=== PATIENT | female | born 1970 | race Caucasian/White ===

== ENCOUNTER 2016-06-17 19:41 | Observation (INO) | payer BC ==
[~2016-06-17] VITALS: Ht 167.6 cm; Wt 141.0 kg
[~2016-06-17 19:41] MED LIST: AMBI10TA PO; CAMP333T PO; MAGO400T PO; TRAZ50TA4 PO; ZOLO100T PO
[2016-06-17] MEDS ORDERED: MORPHINE 4 MG/ML 1ML SYRINGE As Ordered ONE ×2 (19:57→20:27)
[2016-06-17] MEDS ORDERED: ONDANSETRON 4MG/2ML VIAL (J2405) As Ordered ONE (19:58)
--- NOTE | 2016-06-17 20:29 | REP ---
Clinical: Trauma. Technique: AP and lateral views. Findings: Comminuted displaced trimalleolar fractures of the ankle are appreciated with overlying soft tissue swelling. Dislocation at the tibiotalar joint best identified on lateral radiograph. Impression: Comminuted dislocated trimalleolar fractures of the ankle. Signed by Inderjit Parisi MD 06/17/2016 08:20 P
[2016-06-17] MEDS ORDERED: KETAMINE HCL 200 MG/20 ML VIAL As Ordered ONE (20:54)
[2016-06-17] MEDS ORDERED: MIDAZOLAM INJ 2 MG/2 ML VIAL (J2250) As Ordered ONE (20:55)
[2016-06-17] MEDS ORDERED: PROPOFOL 200 MG/20 ML VIAL As Ordered ONE (21:02)
[2016-06-17] MEDS ORDERED: VITMTA PO (21:02)
[2016-06-17] MEDS ORDERED: MORPHINE 2 MG/ML 1ML SYRINGE As Ordered ONE (22:45)
--- NOTE | 2016-06-17 23:10 | REPUSA ---
CT of the left ankle without contrast Clinical statement: Pain. Technique: Multiple axial CT images were obtained with 5 mm cuts through the left ankle without admin istration of contrast. Coronal and sagittal reconstructions were also obtained. No comparison is available. Findings: There is a longitudinal fracture through the medial and posterior malleoli of the distal ti fabi, extending to the articular surface. There is also an oblique fracture through the lateral distal aspect of the tibia, extending to the articular surface. There is an oblique, nondisplaced fracture of the distal fibula, without displacement. There is a tiny 3 mm fracture fragment demonstrated in th e central portion of the ankle mortise posteriorly. The ankle mortise is otherwise intact. Extensive surrounding soft tissue swelling is noted. Impression: Trimalleolar fracture of the left ankle, with oblique nondisplaced fractures of the media l malleolus, lateral malleolus, and posterior tibial, extending to the articular surface as described .
--- NOTE | 2016-06-17 23:17 | EDDOCDS ---
Nurse's Notes [facility] Name: Medina Foster Age: 46 yrs Sex: Female : 1970 Arrival Date: 06/17/2016 Time: 19:41 Bed 4 Private MD: Diagnosis: Displaced trimalleolar fracture of left lower leg Presentation: 06/17 19:49 Presenting complaint: EMS states: Pt was walking down the stairs outside her house and js15 slipped on ice and fell down 3 stairs and injured left ankle; EMS states that there was obvious deformity with bruising and swelling on arrival. The patients lower extremity has obvious swelling present on examination. The charge nurse has been notified. The patient has been moved to a treatment area. has a possible ankle defomity on examination. The charge nurse has been notified. The patient has been moved to a treatment area. Adult Sepsis Screening: The patient does not have new or worsening altered mentation. Patient's respiratory rate is less than 22. Systolic blood pressure is greater than 100. Patient has a qSOFA score of 0- Negative Sepsis Screen. Suicide/Homicide risk assessment- the patient denies having any suicidal and/or homicidal ideations and does not present with any other emotional, behavioral or mental health complaints. 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 Transition of care: patient was not received from another setting of care. 19:49 Acuity: AGAPITO Level 3 15 19:49 Method Of Arrival: Ambulance js15 Triage Assessment: 19:54 General: Appears uncomfortable, Behavior is anxious, appropriate for age, cooperative, js15 crying. Pain: Location: left lateral ankle and left medial ankle Pain currently is 8 out of 10 on a pain scale. HIV screening NA for this visit Offered previously. The patient is triaged at the bedside. See Assessment in Nurses Notes section of ED record. Neurological: Level of Consciousness is awake, alert, obeys commands, Oriented to person, place, time. Cardiovascular: Chest pain is denied. Cardiovascular: Pulses are palpable in left dorsalis pedis artery. Respiratory: Airway is patent Respiratory effort is even, unlabored, Respiratory pattern is regular, symmetrical. Derm: Skin is pink, warm & dry. Musculoskeletal: Capillary refill < 3 seconds other present Swelling present in left ankle Reports pain in left ankle. 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 Zoloft 150 mg Oral once daily (Last dose: 06/17/2016) 2. multivitamin Oral tab (Last dose: 06/16/2016) - PMHx: Depression; Anxiety; - PSHx: Tonsillectomy; Adenoidectomy; Gastric Bypass; lumpectomy; - Social history: Smoking status: Patient states was never smoker of tobacco. No barriers to communication noted, The patient speaks fluent Iranian, Speaks appropriately for age. - Family history: Not pertinent. - : The pt / caregiver states he / she is not on anticoagulants. Home medication list is obtained from the patient. - Exposure Risk Screening:: None identified. Screenin:01 Screening information is obtained from the patient. Fall risk: At risk due to injury, 15 The following interventions are performed due to a positive Fall Risk Screen: side rails upx2, bed in low position, call light in reach. Assistance ADL's: requires no assistance with activities of daily living. Abuse/DV Screen: The patient / caregiver reports he/she is: not in a situation that causes fear, pain or injury. Nutritional screening: No deficits noted. Advance Directives: There is no active DNR order. home support is adequate. Assessment: 20:01 General: see triage note. [facility] 21:00 Reassessment: Patient appears in no apparent distress at this time. Pt resting on [facility] stretcher, awake and alert; Dr. Valdez at bedside talking over consent forms for procedures; respirations even and unlabored; skin pink, warm, dry. 22:00 Reassessment: Pt resting on stretcher, awake and alert and orientedx3 and back to [facility] baseline mentation following conscious sedation procedure; respirations even and unlabored; skin pink, warm, dry; pain 4/10 in left ankle; will continue to monitor. 22:58 General: Appears in no apparent distress, comfortable, Behavior is appropriate for age, 15 cooperative. Pain: Location: left medial ankle and left lateral ankle Pain. Neurological: Level of Consciousness is awake, alert, obeys commands, Oriented to person, place, time. Cardiovascular: Rhythm is sinus rhythm. Respiratory: Airway is patent Respiratory effort is even, unlabored, Respiratory pattern is regular, symmetrical. Derm: Skin is pink, warm & dry. Musculoskeletal: splint in place to left lower leg Signs and Symptoms of Compartment Syndrome: no signs of compartment syndrome. Vital Signs: 19:49 BP 178 / 87; Pulse 104; Resp 20; Temp 100.1(TE); Pulse Ox 94% on R/A; Height 5 ft. 6 js15 in. (167.64 cm); 20:37 Weight 136.08 kg (R); js15 21:15 BP 160 / 67 (auto/); js15 21:15 Pulse 100; Pulse Ox 99% ; js15 21:20 BP 174 / 84 (auto/); js15 21:25 BP 170 / 81 (auto/); js15 21:25 Pulse 106 MON; Pulse Ox 95% ; js15 21:30 BP 164 / 76 (auto/); js15 21:30 Pulse 104 MON; Pulse Ox 96% ; js15 21:34 Pulse 102 MON; Pulse Ox 98% ; js15 21:35 BP 173 / 66 (auto/); js15 21:40 BP 156 / 73 (auto/); js15 21:40 Pulse 104 MON; Pulse Ox 90% ; js15 21:45 BP 150 / 67 (auto/); js15 21:45 Pulse 102 MON; Pulse Ox 95% ; js15 21:50 BP 143 / 67 (auto/); js15 21:50 Pulse 100 MON; Pulse Ox 94% ; js15 21:55 BP 143 / 67 (auto/); js15 21:55 Pulse 100 MON; Pulse Ox 90% ; js15 22:00 BP 136 / 63 (auto/); js15 22:00 Pulse 94 MON; Pulse Ox 94% ; js15 22:10 BP 131 / 62 (auto/); js15 22:11 Pulse 94 MON; Pulse Ox 98% ; js15 22:15 BP 132 / 62 (auto/); js15 22:16 Pulse 94 MON; Pulse Ox 92% ; js15 22:19 BP 134 / 64 (auto/); Pulse 94; Resp 20; Temp 100.5(TE); Pulse Ox 95% on R/A; Pain 6/10; js15 22:30 BP 128 / 59 (auto/); js15 22:31 Pulse 96 MON; Pulse Ox 91% ; js15 22:45 BP 162 / 72 (auto/); js15 22:49 Pulse 98 MON; Pulse Ox 94% ; js15 23:00 BP 142 / 58 (auto/); js15 23:01 Pulse 94 MON; Pulse Ox 95% ; js15 20:37 Body Mass Index 48.42 (136.08 kg, 167.64 cm) js15 Vitals: 19:49 Log In Time N/A - ambulance arrival. js15 ED Course: 19:43 Patient visited by David Krishnamurthy Strand Galvanizer. ml3 19:43 Patient moved to Waiting ml3 19:44 Cass Mitchell,RN is Primary Nurse. ml3 19:44 Boo Mccrary DO is Attending Physician. mm11 19:44 Patient visited by Boo Mccrary DO. mm11 19:44 Patient moved to 4 ml3 19:52 Triage Initiated js15 20:03 Inserted saline lock: 20 gauge in right antecubital area The patient tolerated the js15 procedure well. inserted by Darrian Penaloza RN. 20:07 Patient visited by Boo Mccrary DO. mm11 20:30 The patient / caregiver is instructed regarding the plan of care and ED course. js15 20:43 Patient visited by Boo Mccrary DO. mm11 20:43 [facility] Payment Agreement was scanned into [employer] and attached to record. zo 21:10 Ankle,(ap\E\lat) Returned. EDMS 21:14 Assist provider with reduction of left ankle using manipulation, Set up for procedure. js15 Performed by Cesar Valdez Immobilized with OCL splint, Patient tolerated well. see conscious sedation template. 21:21 Patient visited by Boo Mccrary DO. mm11 21:23 Cesar Valdez is Hospitalizing Provider. mm11 21:41 Admission Orders was scanned into [employer] and attached to record. ml3 22:37 Primary Nurse role handed off by Cass Mitchell RN kb5 M. Sedation: 21:12 Pre-procedure: Name of procedure: Left ankle reduction and splint The provider brett performing the procedure is Cesar Valdez 21:12 Pre-procedure: Monitoring RN: Leisa Barnett RN Other Staff: Darrian LEZAMA, Darrian Penaloza js15 slot attendant Reviewed instructions and expectations with patient, Has had drug/anesthesia reactions to none Reviewed patient's current meds list. test specialist on. Cardiac rhythm sinus tachycardia Pulse ox on. Oxygen via nasal cannula \T\ 2L/min 21:14 Pre-procedure: Time out \T\4 js15 21:17 Intra-procedure: Procedure began at 21:17 Patient response: remains sedated, resps js15 even/unlabored, IV patent. 21:22 Q 5 minute assessment Level of Consciousness: Drowsy Color: [place] Skin: Warm / Dry js15 Pain: Unable to quantify pain 21:25 Post-procedure: Procedure ended at 21:25 the total procedure time was less than 30 js15 minutes. 21:27 Q 5 minute assessment Level of Consciousness: Responds Color: [place] Skin: Warm / Dry js15 Pain: 5 / 10 21:32 Q 5 minute assessment Level of Consciousness: Alert / Oriented Color: [place] Skin: js15 Warm / Dry Pain: 4 / 10 21:37 Q 5 minute assessment Level of Consciousness: Alert / Oriented Color: [place] Skin: js15 Warm / Dry Pain: 4 / 10 Administered Medications: 20:03 Drug: Ondansetron 4 mg [ondansetron HCl 2 mg/mL intravenous solution (2 mL)] Route: js15 IVP; Site: right antecubital; 20:04 Drug: morphine 4 mg [morphine 4 mg/mL intravenous cartridge (1 mL)] Route: IVP; Site: 15 right antecubital; 20:05 Drug: NS 0.9% 1000 ml [sodium chloride 0.9 % intravenous solution] Route: IV; Rate: 100 js15 mL/hr; Site: right antecubital; 23:06 Follow up: IV Status: Completed infusion; IV Intake: 1000ml 15 20:33 Drug: morphine 4 mg [morphine 4 mg/mL intravenous cartridge (1 mL)] Route: IVP; Site: 15 right antecubital; 21:00 Follow up: Response: Pain is decreased js15 20:42 CANCELLED (Other Intervention Used): Ketamine (1mg/kg - Peds initial dose) 1 mg/kg IVP mm11 once 21:15 Drug: Ketamine (1mg/kg - Peds initial dose) 130 mg [ketamine 10 mg/mL injection js15 solution (13 mL)] {Note: Administered by Dr. Mccrary.} Route: IVP; Site: right antecubital; 21:25 Follow up: Response: No Adverse Reaction js15 21:17 Drug: Midazolam 2 mg [midazolam 1 mg/mL injection solution (2 mL)] {Note: Administered js[address] Mccrary.} Route: IVP; Site: right antecubital; 21:20 Follow up: Response: No Adverse Reaction js15 21:22 CANCELLED (Other Intervention Used): Propofol (PF)(Moderate Sedation, 0.5mg/kg) 70 mg mm11 IVP Per protocol; give every 1-2 minutes until desired level of sedation 22:50 Drug: morphine 3 mg [morphine 2 mg/mL intravenous cartridge (1.5 mL)] Route: IVP; Site: js15 right antecubital; 23:06 Follow up: Response: No Adverse Reaction js15 Intake: 23:06 IV: 1000.00ml; Total: 1000.00ml. js15 RT: 21:29 Sedation Time: 30Minutes. O2 via nasal cannula \T\ 4L/min. jc3 21:29 O2 via ETCO2 on patient throughout procedure. All within limits. jc3 Order Results: Radiology Order: Ankle,(ap\E\lat) Test: Ankle,(ap\E\lat) REASON FOR EXAMINATION: Trauma; Clinical: Trauma.; ; Technique: AP and lateral views.; ; Findings:; Comminuted displaced trimalleolar fractures of the ankle are appreciated with; overlying soft tissue swelling. Dislocation at the tibiotalar joint best; identified on lateral radiograph.; ; Impression:; Comminuted dislocated trimalleolar fractures of the ankle.; ; ; Signed by; Inderjit Parisi MD 06/17/2016 08:20 P; Outcome: 21:23 Decision to Hospitalize by Provider. mm11 23:03 Discharge Assessment: Patient awake, alert and oriented x 3. No cognitive and/or js15 functional deficits noted. Patient verbalized understanding of disposition instructions. patient administered narcotics - yes. Patient was admitted to the hospital or transferred to another facility. The following High Risk Discharge criteria are identified: None. Admitted to Med/Surg accompanied by tech, family with patient, via stretcher, with chart. Condition: stable. CT Study completed. Property :Personal belongings accompany Pt. 23:16 Patient left the ED. ml3 Signatures: Dispatcher [employer] EDMS David Krishnamurthy, Strand Galvanizer Unit ml3 Tien Conklin Kristopher, ROAD EQUIPMENT OPERATOR ROAD EQUIPMENT OPERATOR kb5 Boo Mccrary, DO DO mm11 Frederic Sheldon jc3 Leisa Barnett,RN RN js15 Corrections: (The following items were deleted from the chart) 21:33 21:32 Intra-procedure: Procedure began at 21:17 Patient response: remains sedated, js15 resps even/unlabored, IV patent, js15 MTDD
--- NOTE | 2016-06-17 23:17 | EDDOCDS ---
Physician Documentation [facility] Name: Medina Foster Age: 46 yrs Sex: Female : 1970 Arrival Date: 06/17/2016 Time: 19:41 Bed 4 Private MD: Disposition: 06/17/16 21:23 Hospitalization ordered by Cesar Valdez for Inpatient Admission. Preliminary diagnosis is Displaced trimalleolar fracture of left lower leg. - Bed requested for 4 [place]. - Status is Inpatient Admission. ml3 - Condition is Stable. - Problem is an acute exacerbation. - Symptoms have improved. Historical: - Allergies: No known drug Allergies; - Home Meds: 1. Zoloft 150 mg Oral once daily (Last dose: 06/17/2016) 2. multivitamin Oral tab (Last dose: 06/16/2016) - PMHx: Depression; Anxiety; - PSHx: Tonsillectomy; Adenoidectomy; Gastric Bypass; lumpectomy; - Social history: Smoking status: Patient states was never smoker of tobacco. No barriers to communication noted, The patient speaks fluent Vietnamese, Speaks appropriately for age. - Family history: Not pertinent. - : The pt / caregiver states he / she is not on anticoagulants. Home medication list is obtained from the patient. - Exposure Risk Screening:: None identified. 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 6 js15 in. (167.64 cm); 20:37 Weight 136.08 kg / 300.01 lbs (R); js15 21:15 BP 160 / 67 (auto/); js15 21:15 Pulse 100; Pulse Ox 99% ; js15 21:20 BP 174 / 84 (auto/); js15 21:25 BP 170 / 81 (auto/); js15 21:25 Pulse 106 MON; Pulse Ox 95% ; js15 21:30 BP 164 / 76 (auto/); js15 21:30 Pulse 104 MON; Pulse Ox 96% ; js15 21:34 Pulse 102 MON; Pulse Ox 98% ; js15 21:35 BP 173 / 66 (auto/); js15 21:40 BP 156 / 73 (auto/); js15 21:40 Pulse 104 MON; Pulse Ox 90% ; js15 21:45 BP 150 / 67 (auto/); js15 21:45 Pulse 102 MON; Pulse Ox 95% ; js15 21:50 BP 143 / 67 (auto/); js15 21:50 Pulse 100 MON; Pulse Ox 94% ; js15 21:55 BP 143 / 67 (auto/); js15 21:55 Pulse 100 MON; Pulse Ox 90% ; js15 22:00 BP 136 / 63 (auto/); js15 22:00 Pulse 94 MON; Pulse Ox 94% ; js15 22:10 BP 131 / 62 (auto/); js15 22:11 Pulse 94 MON; Pulse Ox 98% ; js15 22:15 BP 132 / 62 (auto/); js15 22:16 Pulse 94 MON; Pulse Ox 92% ; js15 22:19 BP 134 / 64 (auto/); Pulse 94; Resp 20; Temp 100.5(TE); Pulse Ox 95% on R/A; Pain 6/10; js15 22:30 BP 128 / 59 (auto/); js15 22:31 Pulse 96 MON; Pulse Ox 91% ; js15 22:45 BP 162 / 72 (auto/); js15 22:49 Pulse 98 MON; Pulse Ox 94% ; js15 23:00 BP 142 / 58 (auto/); js15 23:01 Pulse 94 MON; Pulse Ox 95% ; js15 20:37 Body Mass Index 48.42 (136.08 kg, 167.64 cm) [facility] Procedures: 21:24 Moderate sedation: Pre-procedure assessment: the patient has been NPO 2 hour(s) prior mm11 to arrival, ASA physical classification: I - healthy, no underlying organic disease, Airway assessment: able to hyperextend neck, able to maintain airway, can open mouth without difficulty, Mallampati classification of tongue size: II - faucial pillars and soft palate can be visualized, but uvula is masked by the base of the tongue, Monitoring during procedure: nurse at bedside at all times, multineedle shirrer, continuous pulse oximetry, End Tidal CO2 Medications employed: Ketamine, 130 mg(s), Versed, 2 mg(s), Post-procedure assessment: the patient is mildly sedated, Respiratory status: even and unlabored, a reversal agent was not used, Complications: none. Total time spent by provider performing sedation 15 minutes. MDM: 19:55 morphine 4 mg IVP every 30 minutes; Document pain score/vitals after each dose (Hold if mm11 SBP < 90mmHg) x2 ordered. 19:55 Ondansetron 4 mg IVP once ordered. mm11 20:08 IV Saline Lock ordered. mm11 20:08 NS 0.9% 1000 ml IV at 100 mL/hr continuous ordered. mm11 20:10 Ankle,(ap\E\lat) Ordered. EDMS 20:37 Call Respiratory ordered. mm11 20:37 Airway Cart to bedside ordered. mm11 20:37 Continuous Procurement Services Manager and SaO2 with q 5 minute VS during procedure ordered. mm11 20:37 Initiate continuous wave form capnography monitoring ordered. mm11 20:37 Oxygen at 4L/Min [place] or Home dosage ordered. mm11 20:37 Misc. Nursing Order ordered. mm11 20:38 BED REQUEST+ADM ordered. EDMS 20:40 Financial registration complete. zo 20:42 Midazolam 2 mg IVP once ordered. mm11 20:43 Ketamine (1mg/kg - Peds initial dose) 130 mg IVP once ordered. mm11 20:43 [facility] Payment Agreement was scanned into [employer]. and attached to record. zo 20:49 Ankle,(ap\E\lat) Ordered. EDMS 20:51 Call Respiratory complete. js15 21:22 Misc Display Specialist Order ordered. mm11 21:29 Misc Display Specialist Order complete. ml3 21:31 CT-Ankle WITHOUT CONTRAST Ordered. EDMS 21:41 Admission Orders was scanned into [employer]D. and attached to record. ml3 22:34 morphine 3 mg IVP once ordered. js15 Administered Medications: 20:03 Drug: Ondansetron 4 mg [ondansetron HCl 2 mg/mL intravenous solution (2 mL)] Route: js15 IVP; Site: right antecubital; 20:04 Drug: morphine 4 mg [morphine 4 mg/mL intravenous cartridge (1 mL)] Route: IVP; Site: js15 right antecubital; 20:05 Drug: NS 0.9% 1000 ml [sodium chloride 0.9 % intravenous solution] Route: IV; Rate: 100 js15 mL/hr; Site: right antecubital; 23:06 Follow up: IV Status: Completed infusion; IV Intake: 1000ml js15 20:33 Drug: morphine 4 mg [morphine 4 mg/mL intravenous cartridge (1 mL)] Route: IVP; Site: js15 right antecubital; 21:00 Follow up: Response: Pain is decreased js15 20:42 CANCELLED (Other Intervention Used): Ketamine (1mg/kg - Peds initial dose) 1 mg/kg IVP mm11 once 21:15 Drug: Ketamine (1mg/kg - Peds initial dose) 130 mg [ketamine 10 mg/mL injection js15 solution (13 mL)] {Note: Administered by Dr. Mccrary.} Route: IVP; Site: right antecubital; 21:25 Follow up: Response: No Adverse Reaction js15 21:17 Drug: Midazolam 2 mg [midazolam 1 mg/mL injection solution (2 mL)] {Note: Administered js[address] Mccrary.} Route: IVP; Site: right antecubital; 21:20 Follow up: Response: No Adverse Reaction 15 21:22 CANCELLED (Other Intervention Used): Propofol (PF)(Moderate Sedation, 0.5mg/kg) 70 mg mm11 IVP Per protocol; give every 1-2 minutes until desired level of sedation 22:50 Drug: morphine 3 mg [morphine 2 mg/mL intravenous cartridge (1.5 mL)] Route: IVP; Site: 15 right antecubital; 23:06 Follow up: Response: No Adverse Reaction js15 Signatures: Dispatcher [employer] EDME David Krishnamurthy, Shaper Setter Unit ml3 Tien Conklin Matthew, DO DO mm11 Leisa Barnett RN RN js15 The chart was reviewed and I authenticate all verbal orders and agree with the evaluation and treatment provided.Corrections: (The following items were deleted from the chart) 20:42 20:42 Ketamine (1mg/kg - Peds initial dose) 1 mg/kg IVP once ordered. mm11 mm11 21:22 21:01 Propofol (PF)(Moderate Sedation, 0.5mg/kg) 70 mg IVP Per protocol; give every 1-2 mm11 minutes until desired level of sedation ordered. mm11 Attachments: 20:43 [facility] Payment Agreement zo 21:41 Admission Orders ml3 MTDD
[2016-06-17 23:23] VITALS: BP 155/74
[2016-06-17] MEDS ORDERED: PROMETHAZINE INJ 25 MG/ML VIAL (J2550) IV PRN (23:45)
[2016-06-17] MEDS ORDERED: PERCOCET 5MG/325MG TAB PO PRN (23:45)
[2016-06-17] MEDS: D5W/LR 1,000 ML IV SCH (23:50)
[2016-06-17] MEDS: GABAPENTIN 300 MG CAP PO SCH (23:50)
[2016-06-17] MEDS: DOCUSATE SODIUM 100 MG CAP PO SCH (23:50)
[2016-06-17] MEDS: ASCORBIC ACID 500 MG TAB PO SCH (23:51)
[2016-06-18] VITALS (7 sets, daily range): BP systolic 128–161; BP diastolic 67–76
[2016-06-18] MEDS: MORPHINE 4 MG/ML 1ML SYRINGE IV PRN ×2 (01:41→11:20)
[2016-06-18] MEDS: PERCOCET 5MG/325MG TAB PO PRN ×5 (03:58→20:21)
[2016-06-18] MEDS ORDERED: COLA100C PO (06:43)
[2016-06-18] MEDS ORDERED: ASPI325T PO (06:43)
[2016-06-18] MEDS ORDERED: PERC5TAB6 PO (06:43)
[2016-06-18] MEDS: ASCORBIC ACID 500 MG TAB PO SCH ×3 (08:09→20:19)
[2016-06-18] MEDS: DOCUSATE SODIUM 100 MG CAP PO SCH ×2 (08:09→20:20)
[2016-06-18] MEDS: SERTRALINE HCL 50 MG TAB PO SCH (08:10)
[2016-06-18] MEDS: GABAPENTIN 300 MG CAP PO SCH ×3 (08:10→20:21)
[2016-06-18] MEDS: D5W/LR 1,000 ML IV SCH ×2 (08:11→16:51)
--- NOTE | 2016-06-18 08:19 | REP ---
Clinical: Status post reduction. Technique: AP and lateral views. Findings: The patient is status post reduction and stabilization for trimalleolar left ankle fractures. Impression: Status post reduction for trimalleolar left ankle fractures. Signed by Inderjit Parisi MD 06/18/2016 08:11 A
[2016-06-18] MEDS ORDERED: BUPIVACAINE/EPIN 0.25% 30 ML VIAL As Ordered ONE (12:21)
[2016-06-18] MEDS ORDERED: ceFAZolin 1GM INJ (J0690) As Ordered ONE (12:21)
[2016-06-18] MEDS ORDERED: MIDAZOLAM INJ 2 MG/2 ML VIAL (J2250) As Ordered ONE (12:36)
[2016-06-18] MEDS ORDERED: LIDOCAINE 2% INJ 100 MG/5 ML SDV (FOR ANES.) As Ordered ONE (12:36)
[2016-06-18] MEDS ORDERED: PROPOFOL 200 MG/20 ML VIAL As Ordered ONE ×2 (12:36→14:49)
[2016-06-18] MEDS ORDERED: fentaNYL 100 MCG/2 ML INJECTION (J3010) As Ordered ONE (12:36)
[2016-06-18] MEDS ORDERED: ceFAZolin 2 GM/D5W 50 ML IV BAG (J0690) As Ordered ONE (12:53)
[2016-06-18] MEDS ORDERED: PHENYLephrine HCL 500 MCG/5 ML (100MCG/ML) SYRINGE (J2370) As Ordered ONE (13:49)
[2016-06-18] MEDS ORDERED: ceFAZolin 1GM INJ (J0690) XX ONE (14:50)
[2016-06-18] MEDS ORDERED: BUPIVACAINE/EPIN 0.25% 30 ML VIAL XX ONE (15:12)
[2016-06-18] MEDS ORDERED: LR 1,000 ML IV SCH (16:15)
[2016-06-18] MEDS ORDERED: ONDANSETRON 4MG/2ML VIAL (J2405) IV PRN (16:15)
[2016-06-18] MEDS ORDERED: NORCO, ANEXSIA 5/325MG TABLET (HYDROcodone/ACETAMINOPHEN) PO PRN (16:15)
[2016-06-18] MEDS ORDERED: HYDROmorphone HCL 1 MG/ML SYRINGE (J1170) IV PRN ×2 (16:15)
[2016-06-18] MEDS ORDERED: fentaNYL 100 MCG/2 ML INJECTION (J3010) IV PRN (16:15)
[2016-06-18] MEDS: HYDROmorphone HCL 1 MG/ML SYRINGE (J1170) IV PRN ×2 (19:07→23:42)
[2016-06-19] MEDS: PERCOCET 5MG/325MG TAB PO PRN ×6 (00:16→20:29)
[2016-06-19 02:00] VITALS: BP 121/69
[2016-06-19] MEDS: HYDROmorphone HCL 1 MG/ML SYRINGE (J1170) IV PRN ×2 (03:00→06:02)
[2016-06-19 06:00] VITALS: BP 141/73
[2016-06-19] MEDS ORDERED: MS C30TA PO (06:42)
[2016-06-19] MEDS: GABAPENTIN 300 MG CAP PO SCH ×3 (08:14→20:25)
[2016-06-19] MEDS: ASCORBIC ACID 500 MG TAB PO SCH ×3 (08:15→20:25)
[2016-06-19] MEDS: DOCUSATE SODIUM 100 MG CAP PO SCH ×2 (08:15→20:25)
[2016-06-19] MEDS: SERTRALINE HCL 50 MG TAB PO SCH (08:15)
[2016-06-19] MEDS: MORPHINE 30 MG SA TAB PO SCH ×2 (08:15→20:26)
--- NOTE | 2016-06-19 08:30 | REP ---
Clinical: Status post reduction. Technique: AP, lateral, and oblique views of the left ankle. Findings: The patient is status post open reduction and fixation for trimalleolar ankle fractures at satisfactory reduction noted with overlying soft tissue swelling identified. Impression: Status post open reduction and fixation for trimalleolar left ankle fractures. Signed by Inderjit Parisi MD 06/19/2016 08:22 A
--- NOTE | 2016-06-19 09:43 | REP ---
Clinical: Status post fixation. Technique: Intraoperative fluoroscopic imaging. Findings: Multiple intraoperative fluoroscopic images demonstrate the patient to be status post open reduction and fixation for trimalleolar fractures. Orthopedic hardware is in satisfactory position and satisfactory reduction noted. Total fluoroscopic time 1 minute 2 seconds. Impression: Status post open reduction and fixation for trimalleolar left ankle fractures. Signed by Inderjit Parisi MD 06/19/2016 09:35 A
[2016-06-19 10:00] VITALS: BP 159/82
[2016-06-19 14:00] VITALS: BP 138/60
[2016-06-19 22:00] VITALS: BP 129/60
--- NOTE | 2016-06-20 00:17 | EDDOCDS ---
Physician Documentation [facility] Name: Medina Foster Age: 46 yrs Sex: Female : 1970 Arrival Date: 06/17/2016 Time: 19:41 Bed 4 Private MD: Disposition: 06/17/16 21:23 Hospitalization ordered by Cesar Valdez for Inpatient Admission. Preliminary diagnosis is Displaced trimalleolar fracture of left lower leg. - Bed requested for 4 [place]. - Status is Inpatient Admission. ml3 - Condition is Stable. - Problem is an acute exacerbation. - Symptoms have improved. Historical: - Allergies: No known drug Allergies; - Home Meds: 1. Zoloft 150 mg Oral once daily (Last dose: 06/17/2016) 2. multivitamin Oral tab (Last dose: 06/16/2016) - PMHx: Depression; Anxiety; - PSHx: Tonsillectomy; Adenoidectomy; Gastric Bypass; lumpectomy; - Social history: Smoking status: Patient states was never smoker of tobacco. No barriers to communication noted, The patient speaks fluent Sudanese, Speaks appropriately for age. - Family history: Not pertinent. - : The pt / caregiver states he / she is not on anticoagulants. Home medication list is obtained from the patient. - Exposure Risk Screening:: None identified. 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 6 js15 in. (167.64 cm); 20:37 Weight 136.08 kg / 300.01 lbs (R); js15 21:15 BP 160 / 67 (auto/); js15 21:15 Pulse 100; Pulse Ox 99% ; js15 21:20 BP 174 / 84 (auto/); js15 21:25 BP 170 / 81 (auto/); js15 21:25 Pulse 106 MON; Pulse Ox 95% ; js15 21:30 BP 164 / 76 (auto/); js15 21:30 Pulse 104 MON; Pulse Ox 96% ; js15 21:34 Pulse 102 MON; Pulse Ox 98% ; js15 21:35 BP 173 / 66 (auto/); js15 21:40 BP 156 / 73 (auto/); js15 21:40 Pulse 104 MON; Pulse Ox 90% ; js15 21:45 BP 150 / 67 (auto/); js15 21:45 Pulse 102 MON; Pulse Ox 95% ; js15 21:50 BP 143 / 67 (auto/); js15 21:50 Pulse 100 MON; Pulse Ox 94% ; js15 21:55 BP 143 / 67 (auto/); js15 21:55 Pulse 100 MON; Pulse Ox 90% ; js15 22:00 BP 136 / 63 (auto/); js15 22:00 Pulse 94 MON; Pulse Ox 94% ; js15 22:10 BP 131 / 62 (auto/); js15 22:11 Pulse 94 MON; Pulse Ox 98% ; js15 22:15 BP 132 / 62 (auto/); js15 22:16 Pulse 94 MON; Pulse Ox 92% ; js15 22:19 BP 134 / 64 (auto/); Pulse 94; Resp 20; Temp 100.5(TE); Pulse Ox 95% on R/A; Pain 6/10; js15 22:30 BP 128 / 59 (auto/); js15 22:31 Pulse 96 MON; Pulse Ox 91% ; js15 22:45 BP 162 / 72 (auto/); js15 22:49 Pulse 98 MON; Pulse Ox 94% ; js15 23:00 BP 142 / 58 (auto/); js15 23:01 Pulse 94 MON; Pulse Ox 95% ; js15 20:37 Body Mass Index 48.42 (136.08 kg, 167.64 cm) [facility] Procedures: 21:24 Moderate sedation: Pre-procedure assessment: the patient has been NPO 2 hour(s) prior mm11 to arrival, ASA physical classification: I - healthy, no underlying organic disease, Airway assessment: able to hyperextend neck, able to maintain airway, can open mouth without difficulty, Mallampati classification of tongue size: II - faucial pillars and soft palate can be visualized, but uvula is masked by the base of the tongue, Monitoring during procedure: nurse at bedside at all times, site monitor, continuous pulse oximetry, End Tidal CO2 Medications employed: Ketamine, 130 mg(s), Versed, 2 mg(s), Post-procedure assessment: the patient is mildly sedated, Respiratory status: even and unlabored, a reversal agent was not used, Complications: none. Total time spent by provider performing sedation 15 minutes. MDM: 19:55 morphine 4 mg IVP every 30 minutes; Document pain score/vitals after each dose (Hold if mm11 SBP < 90mmHg) x2 ordered. 19:55 Ondansetron 4 mg IVP once ordered. mm11 20:08 IV Saline Lock ordered. mm11 20:08 NS 0.9% 1000 ml IV at 100 mL/hr continuous ordered. mm11 20:10 Ankle,(ap\E\lat) Ordered. EDMS 20:37 Call Respiratory ordered. mm11 20:37 Airway Cart to bedside ordered. mm11 20:37 Continuous [employer] and SaO2 with q 5 minute VS during procedure ordered. mm11 20:37 Initiate continuous wave form capnography monitoring ordered. mm11 20:37 Oxygen at 4L/Min NC or Home dosage ordered. mm11 20:37 Misc. Nursing Order ordered. mm11 20:38 BED REQUEST+ADM ordered. EDMS 20:40 Financial registration complete. zo 20:42 Midazolam 2 mg IVP once ordered. mm11 20:43 Ketamine (1mg/kg - Peds initial dose) 130 mg IVP once ordered. mm11 20:43 [facility] Payment Agreement was scanned into [email or web address] and attached to record. zo 20:49 Ankle,(ap\E\lat) Ordered. EDMS 20:51 Call Respiratory complete. js15 21:22 [facility]. mm11 21:29 [facility] Order complete. ml3 21:31 CT-Ankle WITHOUT CONTRAST Ordered. EDMS 21:41 Admission Orders was scanned into [email or web address] and attached to record. ml3 22:34 morphine 3 mg IVP once ordered. js15 06/18 10:37 T-Sheet-- Draft Copy was scanned into [email or web address] and attached to record. gb 10:37 ECG/EKG was scanned into [email or web address] and attached to record. gb 10:37 [place] Protocol was scanned into [email or web address] and attached to record. gb 10:38 Consents was scanned into [email or web address] and attached to record. gb 10:38 Radiology Report was scanned into [email or web address] and attached to record. gb Administered Medications: 06/17 20:03 Drug: Ondansetron 4 mg [ondansetron HCl 2 mg/mL intravenous solution (2 mL)] Route: js15 IVP; Site: right antecubital; 20:04 Drug: morphine 4 mg [morphine 4 mg/mL intravenous cartridge (1 mL)] Route: IVP; Site: js15 right antecubital; 20:05 Drug: NS 0.9% 1000 ml [sodium chloride 0.9 % intravenous solution] Route: IV; Rate: 100 js15 mL/hr; Site: right antecubital; 23:06 Follow up: IV Status: Completed infusion; IV Intake: 1000ml js15 20:33 Drug: morphine 4 mg [morphine 4 mg/mL intravenous cartridge (1 mL)] Route: IVP; Site: js15 right antecubital; 21:00 Follow up: Response: Pain is decreased js15 20:42 CANCELLED (Other Intervention Used): Ketamine (1mg/kg - Peds initial dose) 1 mg/kg IVP mm11 once 21:15 Drug: Ketamine (1mg/kg - Peds initial dose) 130 mg [ketamine 10 mg/mL injection js15 solution (13 mL)] {Note: Administered by Dr. Mccrary.} Route: IVP; Site: right antecubital; 21:25 Follow up: Response: No Adverse Reaction 15 21:17 Drug: Midazolam 2 mg [midazolam 1 mg/mL injection solution (2 mL)] {Note: Administered js[address] Mccrary.} Route: IVP; Site: right antecubital; 21:20 Follow up: Response: No Adverse Reaction 15 21:22 CANCELLED (Other Intervention Used): Propofol (PF)(Moderate Sedation, 0.5mg/kg) 70 mg mm11 IVP Per protocol; give every 1-2 minutes until desired level of sedation 22:50 Drug: morphine 3 mg [morphine 2 mg/mL intravenous cartridge (1.5 mL)] Route: IVP; Site: js15 right antecubital; 23:06 Follow up: Response: No Adverse Reaction js15 Signatures: Dispatcher [employer] EDJenny Branham, David Schmitz, Deck[employer] ml3 Tien Conklin Matthew, DO DO mm11 Leisa Barnett RN RN js15 The chart was reviewed and I authenticate all verbal orders and agree with the evaluation and treatment provided.Corrections: (The following items were deleted from the chart) 20:42 20:42 Ketamine (1mg/kg - Peds initial dose) 1 mg/kg IVP once ordered. mm11 mm11 21:22 21:01 Propofol (PF)(Moderate Sedation, 0.5mg/kg) 70 mg IVP Per protocol; give every 1-2 mm11 minutes until desired level of sedation ordered. mm11 Attachments: 20:43 [facility] [place] Payment Agreement zo 21:41 Admission Orders ml3 06/18 10:37 T-Sheet-- Draft Copy gb 10:37 ECG/EKG gb Chart Complete MTDD
--- NOTE | 2016-06-20 00:17 | EDDOCDS ---
Physician Documentation [facility] Name: Medina Foster Age: 46 yrs Sex: Female : 1970 Arrival Date: 06/17/2016 Time: 19:41 Bed 4 Private MD: Disposition: 06/17/16 21:23 Hospitalization ordered by Cesar Valdez for Inpatient Admission. Preliminary diagnosis is Displaced trimalleolar fracture of left lower leg. - Bed requested for 4 [place]. - Status is Inpatient Admission. ml3 - Condition is Stable. - Problem is an acute exacerbation. - Symptoms have improved. Historical: - Allergies: No known drug Allergies; - Home Meds: 1. Zoloft 150 mg Oral once daily (Last dose: 06/17/2016) 2. multivitamin Oral tab (Last dose: 06/16/2016) - PMHx: Depression; Anxiety; - PSHx: Tonsillectomy; Adenoidectomy; Gastric Bypass; lumpectomy; - Social history: Smoking status: Patient states was never smoker of tobacco. No barriers to communication noted, The patient speaks fluent Indonesian, Speaks appropriately for age. - Family history: Not pertinent. - : The pt / caregiver states he / she is not on anticoagulants. Home medication list is obtained from the patient. - Exposure Risk Screening:: None identified. 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 6 js15 in. (167.64 cm); 20:37 Weight 136.08 kg / 300.01 lbs (R); js15 21:15 BP 160 / 67 (auto/); js15 21:15 Pulse 100; Pulse Ox 99% ; js15 21:20 BP 174 / 84 (auto/); js15 21:25 BP 170 / 81 (auto/); js15 21:25 Pulse 106 MON; Pulse Ox 95% ; js15 21:30 BP 164 / 76 (auto/); js15 21:30 Pulse 104 MON; Pulse Ox 96% ; js15 21:34 Pulse 102 MON; Pulse Ox 98% ; js15 21:35 BP 173 / 66 (auto/); js15 21:40 BP 156 / 73 (auto/); js15 21:40 Pulse 104 MON; Pulse Ox 90% ; js15 21:45 BP 150 / 67 (auto/); js15 21:45 Pulse 102 MON; Pulse Ox 95% ; js15 21:50 BP 143 / 67 (auto/); js15 21:50 Pulse 100 MON; Pulse Ox 94% ; js15 21:55 BP 143 / 67 (auto/); js15 21:55 Pulse 100 MON; Pulse Ox 90% ; js15 22:00 BP 136 / 63 (auto/); js15 22:00 Pulse 94 MON; Pulse Ox 94% ; js15 22:10 BP 131 / 62 (auto/); js15 22:11 Pulse 94 MON; Pulse Ox 98% ; js15 22:15 BP 132 / 62 (auto/); js15 22:16 Pulse 94 MON; Pulse Ox 92% ; js15 22:19 BP 134 / 64 (auto/); Pulse 94; Resp 20; Temp 100.5(TE); Pulse Ox 95% on R/A; Pain 6/10; js15 22:30 BP 128 / 59 (auto/); js15 22:31 Pulse 96 MON; Pulse Ox 91% ; js15 22:45 BP 162 / 72 (auto/); js15 22:49 Pulse 98 MON; Pulse Ox 94% ; js15 23:00 BP 142 / 58 (auto/); js15 23:01 Pulse 94 MON; Pulse Ox 95% ; js15 20:37 Body Mass Index 48.42 (136.08 kg, 167.64 cm) [facility] Procedures: 21:24 Moderate sedation: Pre-procedure assessment: the patient has been NPO 2 hour(s) prior mm11 to arrival, ASA physical classification: I - healthy, no underlying organic disease, Airway assessment: able to hyperextend neck, able to maintain airway, can open mouth without difficulty, Mallampati classification of tongue size: II - faucial pillars and soft palate can be visualized, but uvula is masked by the base of the tongue, Monitoring during procedure: nurse at bedside at all times, cash control specialist, continuous pulse oximetry, End Tidal CO2 Medications employed: Ketamine, 130 mg(s), Versed, 2 mg(s), Post-procedure assessment: the patient is mildly sedated, Respiratory status: even and unlabored, a reversal agent was not used, Complications: none. Total time spent by provider performing sedation 15 minutes. MDM: 19:55 morphine 4 mg IVP every 30 minutes; Document pain score/vitals after each dose (Hold if mm11 SBP < 90mmHg) x2 ordered. 19:55 Ondansetron 4 mg IVP once ordered. mm11 20:08 IV Saline Lock ordered. mm11 20:08 NS 0.9% 1000 ml IV at 100 mL/hr continuous ordered. mm11 20:10 Ankle,(ap\E\lat) Ordered. EDMS 20:37 Call Respiratory ordered. mm11 20:37 Airway Cart to bedside ordered. mm11 20:37 Continuous [employer] and SaO2 with q 5 minute VS during procedure ordered. mm11 20:37 Initiate continuous wave form capnography monitoring ordered. mm11 20:37 Oxygen at 4L/Min NC or Home dosage ordered. mm11 20:37 Misc. Nursing Order ordered. mm11 20:38 BED REQUEST+ADM ordered. EDMS 20:40 Financial registration complete. zo 20:42 Midazolam 2 mg IVP once ordered. mm11 20:43 Ketamine (1mg/kg - Peds initial dose) 130 mg IVP once ordered. mm11 20:43 [facility] Payment Agreement was scanned into [employer] and attached to record. zo 20:49 Ankle,(ap\E\lat) Ordered. EDMS 20:51 Call Respiratory complete. js15 21:22 [facility]. mm11 21:29 [facility] Order complete. ml3 21:31 CT-Ankle WITHOUT CONTRAST Ordered. EDMS 21:41 Admission Orders was scanned into [employer] and attached to record. ml3 22:34 morphine 3 mg IVP once ordered. js15 06/18 10:37 T-Sheet-- Draft Copy was scanned into [employer] and attached to record. gb 10:37 ECG/EKG was scanned into [employer] and attached to record. gb 10:37 [place] Protocol was scanned into [employer] and attached to record. gb 10:38 Consents was scanned into [employer] and attached to record. gb 10:38 Radiology Report was scanned into [employer] and attached to record. gb Administered Medications: 06/17 20:03 Drug: Ondansetron 4 mg [ondansetron HCl 2 mg/mL intravenous solution (2 mL)] Route: js15 IVP; Site: right antecubital; 20:04 Drug: morphine 4 mg [morphine 4 mg/mL intravenous cartridge (1 mL)] Route: IVP; Site: js15 right antecubital; 20:05 Drug: NS 0.9% 1000 ml [sodium chloride 0.9 % intravenous solution] Route: IV; Rate: 100 js15 mL/hr; Site: right antecubital; 23:06 Follow up: IV Status: Completed infusion; IV Intake: 1000ml js15 20:33 Drug: morphine 4 mg [morphine 4 mg/mL intravenous cartridge (1 mL)] Route: IVP; Site: js15 right antecubital; 21:00 Follow up: Response: Pain is decreased js15 20:42 CANCELLED (Other Intervention Used): Ketamine (1mg/kg - Peds initial dose) 1 mg/kg IVP mm11 once 21:15 Drug: Ketamine (1mg/kg - Peds initial dose) 130 mg [ketamine 10 mg/mL injection js15 solution (13 mL)] {Note: Administered by Dr. Mccrary.} Route: IVP; Site: right antecubital; 21:25 Follow up: Response: No Adverse Reaction 15 21:17 Drug: Midazolam 2 mg [midazolam 1 mg/mL injection solution (2 mL)] {Note: Administered js[address] Mccrary.} Route: IVP; Site: right antecubital; 21:20 Follow up: Response: No Adverse Reaction 15 21:22 CANCELLED (Other Intervention Used): Propofol (PF)(Moderate Sedation, 0.5mg/kg) 70 mg mm11 IVP Per protocol; give every 1-2 minutes until desired level of sedation 22:50 Drug: morphine 3 mg [morphine 2 mg/mL intravenous cartridge (1.5 mL)] Route: IVP; Site: js15 right antecubital; 23:06 Follow up: Response: No Adverse Reaction js15 Signatures: Dispatcher [employer] EDJenny Branham, David Schmitz, [facility] Provider [facility] ml3 Tien Conklin Matthew, DO DO mm11 Leisa Barnett RN RN js15 The chart was reviewed and I authenticate all verbal orders and agree with the evaluation and treatment provided.Corrections: (The following items were deleted from the chart) 20:42 20:42 Ketamine (1mg/kg - Peds initial dose) 1 mg/kg IVP once ordered. mm11 mm11 21:22 21:01 Propofol (PF)(Moderate Sedation, 0.5mg/kg) 70 mg IVP Per protocol; give every 1-2 mm11 minutes until desired level of sedation ordered. mm11 Attachments: 20:43 [facility] [place] zo 21:41 Admission Orders ml3 06/18 10:37 T-Sheet-- Draft Copy gb 10:37 ECG/EKG gb Chart Complete MTDD
--- NOTE | 2016-06-20 00:17 | EDDOCDS ---
Nurse's Notes [facility] Name: Medina Foster Age: 46 yrs Sex: Female : 1970 Arrival Date: 06/17/2016 Time: 19:41 Bed 4 Private MD: Diagnosis: Displaced trimalleolar fracture of left lower leg Presentation: 06/17 19:49 Presenting complaint: EMS states: Pt was walking down the stairs outside her house and js15 slipped on ice and fell down 3 stairs and injured left ankle; EMS states that there was obvious deformity with bruising and swelling on arrival. The patients lower extremity has obvious swelling present on examination. The charge nurse has been notified. The patient has been moved to a treatment area. has a possible ankle defomity on examination. The charge nurse has been notified. The patient has been moved to a treatment area. Adult Sepsis Screening: The patient does not have new or worsening altered mentation. Patient's respiratory rate is less than 22. Systolic blood pressure is greater than 100. Patient has a qSOFA score of 0- Negative Sepsis Screen. Suicide/Homicide risk assessment- the patient denies having any suicidal and/or homicidal ideations and does not present with any other emotional, behavioral or mental health complaints. Status: Patient is not a service vehicle operator or dependent. Transition of care: patient was not received from another setting of care. 19:49 Acuity: AGAPITO Level 3 15 19:49 Method Of Arrival: Ambulance js15 Triage Assessment: 19:54 General: Appears uncomfortable, Behavior is anxious, appropriate for age, cooperative, js15 crying. Pain: Location: left lateral ankle and left medial ankle Pain currently is 8 out of 10 on a pain scale. HIV screening NA for this visit Offered previously. The patient is triaged at the bedside. See Assessment in Nurses Notes section of ED record. Neurological: Level of Consciousness is awake, alert, obeys commands, Oriented to person, place, time. Cardiovascular: Chest pain is denied. Cardiovascular: Pulses are palpable in left dorsalis pedis artery. Respiratory: Airway is patent Respiratory effort is even, unlabored, Respiratory pattern is regular, symmetrical. Derm: Skin is pink, warm & dry. Musculoskeletal: Capillary refill < 3 seconds other present Swelling present in left ankle Reports pain in left ankle. 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 Zoloft 150 mg Oral once daily (Last dose: 06/17/2016) 2. multivitamin Oral tab (Last dose: 06/16/2016) - PMHx: Depression; Anxiety; - PSHx: Tonsillectomy; Adenoidectomy; Gastric Bypass; lumpectomy; - Social history: Smoking status: Patient states was never smoker of tobacco. No barriers to communication noted, The patient speaks fluent Tajik, Speaks appropriately for age. - Family history: Not pertinent. - : The pt / caregiver states he / she is not on anticoagulants. Home medication list is obtained from the patient. - Exposure Risk Screening:: None identified. Screenin:01 Screening information is obtained from the patient. Fall risk: At risk due to injury, 15 The following interventions are performed due to a positive Fall Risk Screen: side rails upx2, bed in low position, call light in reach. Assistance ADL's: requires no assistance with activities of daily living. Abuse/DV Screen: The patient / caregiver reports he/she is: not in a situation that causes fear, pain or injury. Nutritional screening: No deficits noted. Advance Directives: There is no active DNR order. home support is adequate. Assessment: 20:01 General: see triage note. [facility] 21:00 Reassessment: Patient appears in no apparent distress at this time. Pt resting on [facility] stretcher, awake and alert; Dr. Valdez at bedside talking over consent forms for procedures; respirations even and unlabored; skin pink, warm, dry. 22:00 Reassessment: Pt resting on stretcher, awake and alert and orientedx3 and back to [facility] baseline mentation following conscious sedation procedure; respirations even and unlabored; skin pink, warm, dry; pain 4/10 in left ankle; will continue to monitor. 22:58 General: Appears in no apparent distress, comfortable, Behavior is appropriate for age, 15 cooperative. Pain: Location: left medial ankle and left lateral ankle Pain. Neurological: Level of Consciousness is awake, alert, obeys commands, Oriented to person, place, time. Cardiovascular: Rhythm is sinus rhythm. Respiratory: Airway is patent Respiratory effort is even, unlabored, Respiratory pattern is regular, symmetrical. Derm: Skin is pink, warm & dry. Musculoskeletal: splint in place to left lower leg Signs and Symptoms of Compartment Syndrome: no signs of compartment syndrome. Vital Signs: 19:49 BP 178 / 87; Pulse 104; Resp 20; Temp 100.1(TE); Pulse Ox 94% on R/A; Height 5 ft. 6 js15 in. (167.64 cm); 20:37 Weight 136.08 kg (R); js15 21:15 BP 160 / 67 (auto/); js15 21:15 Pulse 100; Pulse Ox 99% ; js15 21:20 BP 174 / 84 (auto/); js15 21:25 BP 170 / 81 (auto/); js15 21:25 Pulse 106 MON; Pulse Ox 95% ; js15 21:30 BP 164 / 76 (auto/); js15 21:30 Pulse 104 MON; Pulse Ox 96% ; js15 21:34 Pulse 102 MON; Pulse Ox 98% ; js15 21:35 BP 173 / 66 (auto/); js15 21:40 BP 156 / 73 (auto/); js15 21:40 Pulse 104 MON; Pulse Ox 90% ; js15 21:45 BP 150 / 67 (auto/); js15 21:45 Pulse 102 MON; Pulse Ox 95% ; js15 21:50 BP 143 / 67 (auto/); js15 21:50 Pulse 100 MON; Pulse Ox 94% ; js15 21:55 BP 143 / 67 (auto/); js15 21:55 Pulse 100 MON; Pulse Ox 90% ; js15 22:00 BP 136 / 63 (auto/); js15 22:00 Pulse 94 MON; Pulse Ox 94% ; js15 22:10 BP 131 / 62 (auto/); js15 22:11 Pulse 94 MON; Pulse Ox 98% ; js15 22:15 BP 132 / 62 (auto/); js15 22:16 Pulse 94 MON; Pulse Ox 92% ; js15 22:19 BP 134 / 64 (auto/); Pulse 94; Resp 20; Temp 100.5(TE); Pulse Ox 95% on R/A; Pain 6/10; js15 22:30 BP 128 / 59 (auto/); js15 22:31 Pulse 96 MON; Pulse Ox 91% ; js15 22:45 BP 162 / 72 (auto/); js15 22:49 Pulse 98 MON; Pulse Ox 94% ; js15 23:00 BP 142 / 58 (auto/); js15 23:01 Pulse 94 MON; Pulse Ox 95% ; js15 20:37 Body Mass Index 48.42 (136.08 kg, 167.64 cm) js15 Vitals: 19:49 Log In Time N/A - ambulance arrival. js15 ED Course: 19:43 Patient visited by David Krishnamurthy Field Training Manager. ml3 19:43 Patient moved to Waiting ml3 19:44 Cass Mitchell,RN is Primary Nurse. ml3 19:44 Boo Mccrary DO is Attending Physician. mm11 19:44 Patient visited by Boo Mccrary DO. mm11 19:44 Patient moved to 4 ml3 19:52 Triage Initiated js15 20:03 Inserted saline lock: 20 gauge in right antecubital area The patient tolerated the js15 procedure well. inserted by Darrian Penaloza RN. 20:07 Patient visited by Boo Mccrary DO. mm11 20:30 The patient / caregiver is instructed regarding the plan of care and ED course. js15 20:43 Patient visited by Boo Mccrary DO. mm11 20:43 [facility] [place] Agreement was scanned into [employer] and attached to record. zo 21:10 Ankle,(ap\E\lat) Returned. EDMS 21:14 Assist provider with reduction of left ankle using manipulation, Set up for procedure. js15 Performed by Cesar Valdez Immobilized with OCL splint, Patient tolerated well. see conscious sedation template. 21:21 Patient visited by Boo Mccrary DO. mm11 21:23 Cesar Valdez is Hospitalizing Provider. mm11 21:41 Admission Orders was scanned into [employer] and attached to record. ml3 22:37 Primary Nurse role handed off by Cass Mitchell,TRE kb5 06/18 10:37 T-Sheet-- Draft Copy was scanned into [employer] and attached to record. gb 10:37 ECG/EKG was scanned into [employer] and attached to record. gb 10:37 [place] Protocol was scanned into [employer] and attached to record. gb 10:38 Consents was scanned into [employer] and attached to record. gb 10:38 Radiology Report was scanned into [employer] and attached to record. gb DeclanStalin Sedation: 06/17 21:12 Pre-procedure: Name of procedure: Left ankle reduction and splint The provider js15 performing the procedure is Cesar Valdez 21:12 Pre-procedure: Monitoring RN: Leisa Barnett RN Other Staff: Darrian Sheldon RT, Darrian Penaloza js15 bank officer Reviewed instructions and expectations with patient, Has had drug/anesthesia reactions to none Reviewed patient's current meds list. satellite project site monitor on. Cardiac rhythm sinus tachycardia Pulse ox on. Oxygen via nasal cannula \T\ 2L/min 21:14 Pre-procedure: Time out \T\2113 js15 21:17 Intra-procedure: Procedure began at 21:17 Patient response: remains sedated, resps js15 even/unlabored, IV patent. 21:22 Q 5 minute assessment Level of Consciousness: Drowsy Color: [place] Skin: Warm / Dry js15 Pain: Unable to quantify pain 21:25 Post-procedure: Procedure ended at 21:25 the total procedure time was less than 30 js15 minutes. 21:27 Q 5 minute assessment Level of Consciousness: Responds Color: [place] Skin: Warm / Dry js15 Pain: 5 / 10 21:32 Q 5 minute assessment Level of Consciousness: Alert / Oriented Color: [place] Skin: js15 Warm / Dry Pain: 4 / 10 21:37 Q 5 minute assessment Level of Consciousness: Alert / Oriented Color: [place] Skin: js15 Warm / Dry Pain: 4 / 10 Administered Medications: 20:03 Drug: Ondansetron 4 mg [ondansetron HCl 2 mg/mL intravenous solution (2 mL)] Route: js15 IVP; Site: right antecubital; 20:04 Drug: morphine 4 mg [morphine 4 mg/mL intravenous cartridge (1 mL)] Route: IVP; Site: js15 right antecubital; 20:05 Drug: NS 0.9% 1000 ml [sodium chloride 0.9 % intravenous solution] Route: IV; Rate: 100 js15 mL/hr; Site: right antecubital; 23:06 Follow up: IV Status: Completed infusion; IV Intake: 1000ml 15 20:33 Drug: morphine 4 mg [morphine 4 mg/mL intravenous cartridge (1 mL)] Route: IVP; Site: 15 right antecubital; 21:00 Follow up: Response: Pain is decreased js15 20:42 CANCELLED (Other Intervention Used): Ketamine (1mg/kg - Peds initial dose) 1 mg/kg IVP mm11 once 21:15 Drug: Ketamine (1mg/kg - Peds initial dose) 130 mg [ketamine 10 mg/mL injection js15 solution (13 mL)] {Note: Administered by Dr. Mccrary.} Route: IVP; Site: right antecubital; 21:25 Follow up: Response: No Adverse Reaction js15 21:17 Drug: Midazolam 2 mg [midazolam 1 mg/mL injection solution (2 mL)] {Note: Administered js[address] Mccrary.} Route: IVP; Site: right antecubital; 21:20 Follow up: Response: No Adverse Reaction js15 21:22 CANCELLED (Other Intervention Used): Propofol (PF)(Moderate Sedation, 0.5mg/kg) 70 mg mm11 IVP Per protocol; give every 1-2 minutes until desired level of sedation 22:50 Drug: morphine 3 mg [morphine 2 mg/mL intravenous cartridge (1.5 mL)] Route: IVP; Site: js15 right antecubital; 23:06 Follow up: Response: No Adverse Reaction js15 Attachments: 10:37 [place] Protocol gb 10:38 Consents gb Intake: 06/17 23:06 IV: 1000.00ml; Total: 1000.00ml. js15 RT: 21:29 Sedation Time: 30Minutes. O2 via nasal cannula \T\ 4L/min. jc3 21:29 O2 via ETCO2 on patient throughout procedure. All within limits. jc3 Order Results: Radiology Order: Ankle,(ap\E\lat) Test: Ankle,(ap\E\lat) REASON FOR EXAMINATION: Trauma; Clinical: Trauma.; ; Technique: AP and lateral views.; ; Findings:; Comminuted displaced trimalleolar fractures of the ankle are appreciated with; overlying soft tissue swelling. Dislocation at the tibiotalar joint best; identified on lateral radiograph.; ; Impression:; Comminuted dislocated trimalleolar fractures of the ankle.; ; ; Signed by; Inderjit Parisi MD 06/17/2016 08:20 P; Outcome: 21:23 Decision to Hospitalize by Provider. mm11 23:03 Discharge Assessment: Patient awake, alert and oriented x 3. No cognitive and/or js15 functional deficits noted. Patient verbalized understanding of disposition instructions. patient administered narcotics - yes. Patient was admitted to the hospital or transferred to another facility. The following High Risk Discharge criteria are identified: None. Admitted to Med/Surg accompanied by tech, family with patient, via stretcher, with chart. Condition: stable. CT Study completed. Property :Personal belongings accompany Pt. 23:16 Patient left the ED. ml3 Signatures: Dispatcher [employer] EDMS Jenny Poole, Reg Reg YessyMichaelazabeth, Field Training Manager Unit ml3 Tien Conklin Kristopher, INTERNATIONAL NURSE INTERNATIONAL NURSE kb5 Boo Mccrary, DO mm11 Frederic Sheldon jc3 Leisa Barnett,RN RN js15 Corrections: (The following items were deleted from the chart) 21:33 21:32 Intra-procedure: Procedure began at 21:17 Patient response: remains sedated, js15 resps even/unlabored, IV patent, js15 Chart Complete MTDD
[2016-06-20] MEDS: PERCOCET 5MG/325MG TAB PO PRN ×4 (00:41→14:30)
[2016-06-20 06:00] VITALS: BP 152/78
[2016-06-20] MEDS ORDERED: MAGNESIUM CITRATE 300 ML BTL PO ONE ×2 (07:30→12:00)
[2016-06-20] MEDS ORDERED: MORP30TASA PO (08:02)
[2016-06-20] MEDS: ASCORBIC ACID 500 MG TAB PO SCH ×2 (08:49→16:13)
[2016-06-20] MEDS: DOCUSATE SODIUM 100 MG CAP PO SCH (08:50)
[2016-06-20] MEDS: GABAPENTIN 300 MG CAP PO SCH ×2 (08:50→16:14)
[2016-06-20] MEDS: SERTRALINE HCL 50 MG TAB PO SCH (08:50)
[2016-06-20] MEDS: MORPHINE 30 MG SA TAB PO SCH (08:51)
[2016-06-20 14:00] VITALS: BP_SYST 136; BP_SYST 189; BP_DIAS 75; BP_DIAS 90
--- NOTE | 2016-06-21 09:34 | RO ---
DATE OF PROCEDURE: 06/18/2016 PREOPERATIVE DIAGNOSIS: Left ankle trimalleolar fracture dislocation. POSTOPERATIVE DIAGNOSIS: Left ankle trimalleolar fracture dislocation. PROCEDURE PERFORMED: Open reduction and internal fixation of bimalleolar fracture with reduction and fixation of the posterior lip. SURGEON: Dr. Cesar Valdez DYNAMO REPAIRER: ANESTHESIA: Spinal. ESTIMATED BLOOD LOSS: Less than 40 mL, replaced with crystalloid. No complications. INDICATIONS: A 46-year-old female who slipped on the ice at home. Fracture dislocation, trimalleolar type, of the left ankle. Consent reviewed in detail, including a hernesto discussion of the pathology involved, the procedure proposed, alternatives including doing nothing or closed reduction, the risks including but not limited to pain, failure, posttraumatic arthritis, need for more surgery, infection, or other problems. The patient agrees to proceed. DESCRIPTION OF PROCEDURE: Operative course: Identified in the holding area. Site and side verified. Brought to the operating room. Once the spinal was administered, she was positioned for exposure of the left lower extremity. I approached the fibular side first with a posterolateral incision. The tourniquet was not required to be inflated. I did infiltrated 0.25% Marcaine with epinephrine at the incisions. The dissection was developed through skin and subcuticular tissues to the lateral aspect of the fibula, and I exposed the fracture. The fracture was comminuted. I reduced the fracture with a fracture reduction clamp, and I placed in AP last lag screw, which did secure the fracture. I placed an 8-hole plate, which was contoured and secured, fixing the fibula. Because of the syndesmotic involvement, [place] tubercle. Syndesmotic, I reduced the fibula into the syndesmosis, secured it using the large fracture reduction clamp and then drilled and placed the syndesmotic screw. The reduction was appreciated in the AP and lateral plane. The dissection continued posterior to the fibula so that I could appreciate the posterior malleolar of the lateral aspect. With the foot dorsiflexed, this had been reduced; and on the lateral film, it seemed to be reduced with dorsiflexion and pressure. I exposed the posterior malleolus. The surgical manager assisted with positioning the extremity. I passed the guidewire from posterior to anterior and measured off the guidewire for a cannulated screw. I placed a 4.5 cannulated screw with a washer, fixing the posterior malleolus. The fluoroscopic images were again reviewed, as well as the CT scan images. I approached the medial malleolus. The medial malleolus had a longitudinal fracture line, as well as the distal transverse fracture line. I elected to fix the longitudinal fracture line, which continued posteriorly through the posterior malleolus. I opened a 2-fingerbreadth incision just proximal to the tip of the medial malleolus. That allowed exposure of that fracture line, which seemed to be at the midportion of the medial malleolus, again longitudinal in orientation. I placed a guidewire across the fracture, measured, and placed a screw. Final fluoroscopic images were reviewed. The reduction appeared to be nearly anatomic. Irrigation of wounds was accomplished. Wounds were closed with interrupted stitch, as well as mariola. Dressing applied. The patient placed in a short-leg plaster cast. She was moved to the recovery room in good condition. For further details, please refer to the medical record.
--- NOTE | 2016-06-29 19:18 | CR ---
DATE OF CONSULTATION: 06/17/2016 TIME: 9 o'clock CHIEF COMPLAINT: Left ankle fracture dislocation. HISTORY OF PRESENT ILLNESS: The 46-year-old was at home, slipped on ice on her back porch about 7:30 p.m., and had ankle pain, deformity and inability to ambulate. She had not had ankle pain prior to that. The last meal was 6 p.m. Pain has been controlled with narcotics in the emergency department (ED) incompletely. X-rays done in the ED reveal an ankle fracture dislocation, trimalleolar type, significantly displaced. ALLERGIES: No known drug allergies. PAST SURGICAL HISTORY: Includes gastric bypass surgery and tonsils and adenoids, history of depression on Zoloft. MEDICATIONS: Includes Zoloft 100 mg. 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 She is accompanied at the hospital by her significant other. She has a nonsmoker, social alcohol consumption. FAMILY HISTORY: Noncontributory. REVIEW OF SYSTEMS: She is not reporting problems with vision, thyroid, high blood pressure, chest pain, shortness of breath and other endocrine diseases. She is not complaining of gastrointestinal (GI) disease except for history gastric bypass. Not complaining of liver disease, kidney disease, steroid use, back problems, genitourinary problems or bleeding disorder. CLINICAL EXAMINATION: She is alert, oriented, cooperative. Mood and affect are appropriate. She is a pleasant 46-year-old female. Body habitus was large. Healthy skin in the face, upper and lower extremities. Left lower extremity although warm and well perfused, has an obviously displaced, dislocated left ankle. The extremities otherwise sensate, tender with any manipulation. No additional trauma. Contralateral side is uninvolved. IMPRESSION: Left ankle fracture dislocation, trimalleolar type. RECOMMENDATIONS: 1. I coordinated with the emergency room personnel, Dr. Mccrary, to have the patient receive conscious sedation, and then I implemented a closed reduction maneuver on the ankle, relocating the ankle dislocation and placed a long-leg splint. 2. Prior to relocation of the ankle, I talked with the patient about surgical options and in my opinion, surgery would be appropriate for this trimalleolar ankle fracture and we did complete a consent document which involved a hernesto discussion of the pathology involved, alternatives such as casting and doing nothing which would be a poor alternative in my opinion, and risks including but not limited to pain, failure, infection, need for more surgery, post-traumatic arthritis, limp and other problems. She will be out of work for a number of weeks after this, and she may need to participate in rehabilitation. She agrees to proceed. 3. Coordinated care with the operating room personnel for adding the patient to the schedule for the following day. 4. Also, because of this trimalleolar fracture, I have arranged for the patient have a CT scan of the ankle to evaluate the extent of fracture involvement of the pilon, posterior malleolus, medial malleolus and lateral malleolus. 5. Also, I did review post-reduction x-rays which revealed a significant improvement in the patient's overall alignment. For further details please refer to medical record.
== END 2016-06-20 16:30 | disposition home or self-care (01) ==
LOC: M ED 19:41 → M ED INP 21:00 → INTOOBSV 21:00 → M MSPAV 22:34 → M MS5PR 06-18 15:32
PROVIDERS: ADMIT Orthopaedic Surgery; ATTEND Orthopaedic Surgery
DX: S82.852A Displaced trimalleolar fracture of left lower leg, initial encounter for closed fracture (principal); W18.49XA Other slipping, tripping and stumbling without falling, initial encounter; Y92.099 Unspecified place in other non-institutional residence as the place of occurrence of the external cause; E66.9 Obesity, unspecified; F41.9 Anxiety disorder, unspecified; F32.9 Major depressive disorder, single episode, unspecified; Z79.899 Other long term (current) drug therapy; Z98.84 Bariatric surgery status; Y99.9 Unspecified external cause status; Y93.9 Activity, unspecified
CPT/HCPCS: 27823; 27829; 27840; 73600; 73610; 73700; 93041; 96361; 96374; 96375; 96376; 97116; 97161; 97530; 99285; C1776; J0690; J1170; J2250; J2370; J2405; J3010

== ENCOUNTER → 2016-07-04 | Outpatient (REF) | payer BC ==
[~2016-07-04] MED LIST changes: +ASPI325T PO; +COLA100C PO; +MORP30TASA PO; +MS C30TA PO; +PERC5TAB6 PO; +VITMTA PO
[2016-07-04 16:17] LABS: MEAN CORPUSCULAR HEMOGLOBIN 26.1 pg (27.0-33.0); MEAN CORPUSCULAR HGB CONC 30.5 g/dl (32.0-36.5); MEAN CORPUSCULAR VOLUME 85.6 fl (80.0-96.0); PLATELET COUNT, AUTOMATED 543 k/mm3 (150-450); RED CELL DISTRIBUTION WIDTH 15.9 % (11.5-14.5); WHITE BLOOD COUNT 6.2 K/mm3 (4.0-10.0)
[2016-07-04 16:48] LABS: ALBUMIN 3.8 GM/DL (3.2-5.2); ALKALINE PHOSPHATASE 89 U/L (45-117); ALT/SGPT 27 U/L (12-78); ANION GAP 11 MEQ/L (8-16); AST/SGOT 18 U/L (15-37); BILIRUBIN,TOTAL 0.3 MG/DL (0.2-1.0); BLOOD UREA NITROGEN 16 MG/DL (7-18); CALCIUM LEVEL 9.2 MG/DL (8.5-10.1); CARBON DIOXIDE LEVEL 24 MEQ/L (21-32); CHLORIDE LEVEL 108 MEQ/L (98-107); CHOLESTEROL LEVEL 215 MG/DL (<200); CREATININE FOR GFR 0.95 MG/DL (0.55-1.02); FERRITIN 27 NG/ML (8-252); FREE T4 0.91 NG/DL (0.76-1.46); GLOMERULAR FILTRATION RATE > 60.0 (>58); GLUCOSE, FASTING 99 MG/DL (70-105); POTASSIUM SERUM 4.1 MEQ/L (3.5-5.1); SODIUM LEVEL 143 MEQ/L (136-145); TRIGLYCERIDES LEVEL 167 MG/DL (<150)
[2016-07-04 17:20] LABS: VITAMIN B12 LEVEL 207 PG/ML (247-911)
[2016-07-04 21:13] LABS: ANISOCYTOSIS 1+; BASOPHILS 1 % (0-4); EOSINOPHILS 2 % (0-5); HYPOCHROMASIA 1+
[2016-07-04 21:14] LABS: OVALOCYTES 1+; POIKILOCYTOSIS 1+
== END ==
LOC: M LABDRAW1 15:49
PROVIDERS: ATTEND Family Medicine
DX: R53.83 Other fatigue (principal); R03.0 Elevated blood-pressure reading, without diagnosis of hypertension; E78.2 Mixed hyperlipidemia

== ENCOUNTER 2016-09-27 11:58 | Outpatient (RCR) | payer BC ==
[~2016-09-27 11:58] MED LIST changes: -COLA100C PO; +COLA100C3 PO
[2016-10-03] MEDS ORDERED: TYLE500T78 PO (12:29)
[2016-10-03] MEDS ORDERED: IRON65TA PO (12:29)
[2016-10-03] MEDS ORDERED: VITA500T53 PO (12:29)
[2016-10-03] MEDS ORDERED: VITA200016 PO (12:29)
== END 2016-09-28 ==
LOC: M PT 11:58
PROVIDERS: ATTEND Orthopaedic Surgery
DX: Z51.89 Encounter for other specified aftercare (principal); S82.852D Displaced trimalleolar fracture of left lower leg, subsequent encounter for closed fracture with routine healing; X58.XXXD Exposure to other specified factors, subsequent encounter; Y92.89 Other specified places as the place of occurrence of the external cause; Y93.89 Activity, other specified; Y99.8 Other external cause status
CPT/HCPCS: 97010; 97110; 97161; G0283

== ENCOUNTER 2016-10-06 08:30 | Outpatient (RCR) | payer BC ==
[~2016-10-06 08:30] MED LIST changes: -COLA100C3 PO; +COLA100C5 PO; +IRON65TA PO; -MS C30TA PO; +MS C30TA6 PO; +PERC5TAB12 PO; -PERC5TAB6 PO; +TRAZ50TA11 PO; -TRAZ50TA4 PO; +TYLE500T78 PO; +VITA200016 PO; +VITA500T53 PO
== END 2016-10-28 | disposition home or self-care (01) ==
LOC: M PT 08:30
PROVIDERS: ATTEND Orthopaedic Surgery
DX: S82.852D Displaced trimalleolar fracture of left lower leg, subsequent encounter for closed fracture with routine healing (principal); Z51.89 Encounter for other specified aftercare
CPT/HCPCS: 97110; G0283

== ENCOUNTER → 2016-10-13 | Day surgery (SDC) | payer BC ==
[~2016-10-13] VITALS: Ht 170.2 cm; Wt 129.3 kg
[~2016-10-13] MED LIST changes: +BUPIVACAINE/EPIN 0.25% 30 ML VIAL As Ordered ONE; +D5W/LR 1,000 ML IV SCH; +KETOROLAC 60 MG/2 ML VIAL (J1885) As Ordered ONE; +LIDOCAINE 2% INJ 100 MG/5 ML SDV (FOR ANES.) As Ordered ONE; +LIDOCAINE PRES-FREE 2% 10ML AMP As Ordered ONE; +LR 1,000 ML IV SCH; +MIDAZOLAM INJ 2 MG/2 ML VIAL (J2250) As Ordered ONE; +MORPHINE 2 MG/ML 1ML SYRINGE IV PRN; +ONDANSETRON 4MG/2ML VIAL (J2405) IV PRN; +PERCOCET 5MG/325MG TAB PO ONE; +PERCOCET 5MG/325MG TAB PO PRN; +PROMETHAZINE INJ 25 MG/ML VIAL (J2550) IV PRN; +PROPOFOL 200 MG/20 ML VIAL As Ordered ONE; +ceFAZolin 1GM INJ (J0690) As Ordered ONE; +fentaNYL 100 MCG/2 ML INJECTION (J3010) As Ordered ONE; +fentaNYL 100 MCG/2 ML INJECTION (J3010) IV PRN
[2016-10-13 11:33] LABS: CONTROL LINE UCG INT CTR LINE PRESENT
[2016-10-13 13:00] VITALS: BP 130/72
--- NOTE | 2016-10-13 17:28 | REP ---
C-ARM LEFT ANKLE: 10/13/2016: Clinical history: Removal of hardware left ankle. Findings: A single image from C-arm fluoroscopy provided to Dr. Valdez of the orthopedic division is reviewed. This shows the transverse screw from the plate and fibular shaft through the distal tibial diametaphysis with the screwdriver attachment to its head. It is being withdrawn. Unreviewed
--- NOTE | 2016-10-14 14:39 | RO ---
DATE OF PROCEDURE: 10/13/2016 PREPROCEDURE DIAGNOSIS: Left ankle syndesmotic screw POSTPROCEDURE DIAGNOSIS: same PROCEDURE PERFORMED: Removal of syndesmotic screw, left ankle. SURGEON: Cesar Valdez MD RESEARCH ADVISOR: Tello Valdes PA-C ANESTHESIA: Local MAC. ESTIMATED BLOOD LOSS: Less than 15 mL, replaced with crystalloid. COMPLICATIONS: No complications. INDICATIONS: Medina is a 46-year-old female who had a significant trimalleolar ankle fracture with compromise of the syndesmosis, who has elected for removal of syndesmotic screw. Consent reviewed in detail with the patient, including a hernesto discussion of the pathology involved, rationale for surgery versus not surgery, and risks, including, but not limited to pain, failure, infection or some other problems. . DESCRIPTION OF PROCEDURE: Identified holding area. Site and side verified. Brought to the operating room. Once she was sedated, prepped and draped, we outlined the incision using a marking pen. I utilized intraoperative mini fluoroscopy to plot the location of the syndesmotic screw. We made an incision approximately 1.5 cm long and developed this dissection to the surface of the plate and fibula. I utilized fluoroscopy and verified that the screwdriver was in the head of the syndesmotic screw. The syndesmotic screw was then removed. The wound was irrigated, closed with interrupted stitch. A dressing was applied. The patient was moved to the recovery room in good condition. For further details, please refer to medical record. [facility]
== END | disposition home or self-care (01) ==
LOC: M SDC 10:15
PROVIDERS: ATTEND Orthopaedic Surgery
DX: Z96.9 Presence of functional implant, unspecified (principal); I10 Essential (primary) hypertension; F41.9 Anxiety disorder, unspecified; F32.9 Major depressive disorder, single episode, unspecified; Z87.81 Personal history of (healed) traumatic fracture; Z98.84 Bariatric surgery status; Z79.899 Other long term (current) drug therapy
CPT/HCPCS: 20680; 73610; 84703; J0690; J1885; J2250; J3010

== ENCOUNTER → 2017-06-09 | Outpatient (CLI) | payer BC | LOC: M WHC 13:15 | DX: Z12.31 Encounter for screening mammogram for malignant neoplasm of breast (principal) | CPT/HCPCS: 77067 ==

== ENCOUNTER → 2017-06-09 | Outpatient (REF) | payer BC ==
[2017-06-13 14:13] LABS: HPV HYBRID CAPTURE II Positive (Negative)
== END ==
LOC: M SFHCWAGY 13:49
DX: Z12.4 Encounter for screening for malignant neoplasm of cervix (principal)
CPT/HCPCS: G0123

== ENCOUNTER 2017-08-28 20:55 | Emergency (ER) | payer BC ==
[2017-08-28] MEDS: LIDOCAINE 2% W/EPIN INJ 20ML **PRES FREE INJ (22:09)
[2017-08-28] MEDS: DERMABOND TOPICAL SKIN ADHESIVE TOP (22:09)
[2017-08-28] MEDS: ADACEL/BOOSTRIX VACCINE (DIPHTH/PERTUSS/ACELL/TETANUS)0.5ML SYR (90715) IM (22:17)
[2017-08-28] MEDS: IBUPROFEN 600 MG TAB PO (23:35)
== END 2017-08-28 23:40 | disposition home or self-care (01) ==
LOC: M ED 20:55
DX: S01.81XA Laceration without foreign body of other part of head, initial encounter (principal); S00.83XA Contusion of other part of head, initial encounter; W01.198A Fall on same level from slipping, tripping and stumbling with subsequent striking against other object, initial encounter; Y92.410 Unspecified street and highway as the place of occurrence of the external cause; Y93.9 Activity, unspecified; Y99.9 Unspecified external cause status; Z98.84 Bariatric surgery status; F32.9 Major depressive disorder, single episode, unspecified; Z79.899 Other long term (current) drug therapy
CPT/HCPCS: 90715

== ENCOUNTER 2018-08-17 01:58 | Emergency (ER) | payer BC ==
[~2018-08-17] VITALS: Ht 170.2 cm; Wt 145.4 kg
[~2018-08-17 01:58] MED LIST changes: +ASPI-1 PO; -ASPI325T PO; -BUPIVACAINE/EPIN 0.25% 30 ML VIAL As Ordered ONE; -D5W/LR 1,000 ML IV SCH; -KETOROLAC 60 MG/2 ML VIAL (J1885) As Ordered ONE; -LIDOCAINE 2% INJ 100 MG/5 ML SDV (FOR ANES.) As Ordered ONE; -LIDOCAINE PRES-FREE 2% 10ML AMP As Ordered ONE; -LR 1,000 ML IV SCH; -MIDAZOLAM INJ 2 MG/2 ML VIAL (J2250) As Ordered ONE; -MORPHINE 2 MG/ML 1ML SYRINGE IV PRN; -ONDANSETRON 4MG/2ML VIAL (J2405) IV PRN; -PERCOCET 5MG/325MG TAB PO ONE; -PERCOCET 5MG/325MG TAB PO PRN; -PROMETHAZINE INJ 25 MG/ML VIAL (J2550) IV PRN; -PROPOFOL 200 MG/20 ML VIAL As Ordered ONE; +TRAZ-160 PO; -TRAZ50TA11 PO; +VITA500T17 PO; -VITA500T53 PO; -ceFAZolin 1GM INJ (J0690) As Ordered ONE; -fentaNYL 100 MCG/2 ML INJECTION (J3010) As Ordered ONE; -fentaNYL 100 MCG/2 ML INJECTION (J3010) IV PRN
[2018-08-17 02:03] VITALS: BP 184/104
== END 2018-08-17 03:34 | disposition home or self-care (01) ==
LOC: M ED 01:58
DX: F10.129 Alcohol abuse with intoxication, unspecified (principal); F33.9 Major depressive disorder, recurrent, unspecified; F41.9 Anxiety disorder, unspecified; Z79.899 Other long term (current) drug therapy

== ENCOUNTER → 2018-09-12 | Outpatient (REF) | payer BC ==
[2018-09-12 11:58] LABS: HEMATOCRIT 45.3 % (36.0-47.0); HEMOGLOBIN 14.7 g/dl (12.0-15.5); MEAN CORPUSCULAR HEMOGLOBIN 31.8 pg (27.0-33.0); MEAN CORPUSCULAR HGB CONC 32.5 g/dl (32.0-36.5); MEAN CORPUSCULAR VOLUME 98.1 fl (80.0-96.0); PLATELET COUNT, AUTOMATED 367 10^3/uL (150-450); RED BLOOD COUNT 4.62 10^6/uL (4.00-5.40); WHITE BLOOD COUNT 6.3 10^3/uL (4.0-10.0)
[2018-09-12 12:43] LABS: HEMOGLOBIN A1c 5.8 %
[2018-09-12 13:19] LABS: ALBUMIN 3.4 GM/DL (3.2-5.2); ALT/SGPT 30 U/L (12-78); BILIRUBIN,TOTAL 0.3 MG/DL (0.2-1.0); BLOOD UREA NITROGEN 12 MG/DL (7-18); CALCIUM LEVEL 8.9 MG/DL (8.5-10.1); CARBON DIOXIDE LEVEL 27 MEQ/L (21-32); CHLORIDE LEVEL 105 MEQ/L (98-107); CHOLESTEROL LEVEL 214 MG/DL (<200); CHOLESTEROL RISK RATIO 3.508 (<5); CREATININE FOR GFR 0.57 MG/DL (0.55-1.30); FERRITIN 8 NG/ML (8-252); FOLATE 9.1 NG/ML; GLOMERULAR FILTRATION RATE > 60.0 (>51); GLUCOSE, FASTING 85 MG/DL (70-100); HDL CHOLESTEROL 61 MG/DL (>40); LDL CHOLESTEROL 118 MG/DL (<100); MAGNESIUM LEVEL 2.2 MG/DL (1.8-2.4); NON-HDL-C 153 MG/DL; POTASSIUM SERUM 4.4 MEQ/L (3.5-5.1); SODIUM LEVEL 140 MEQ/L (136-145); TOTAL 25(OH) VITAMIN D 13.8 NG/ML (30.0-100.0); TOTAL PROTEIN 7.2 GM/DL (6.4-8.2); TRIGLYCERIDES LEVEL 173 MG/DL (<150); VITAMIN B12 LEVEL 196 PG/ML
== END ==
LOC: M LABDRAW1 11:13
PROVIDERS: ATTEND Family Medicine
DX: E78.5 Hyperlipidemia, unspecified (principal); Z98.84 Bariatric surgery status; E55.9 Vitamin D deficiency, unspecified

== ENCOUNTER → 2019-01-08 | Outpatient (CLI) | payer BC ==
[~2019-01-08] MED LIST changes: -TRAZ-160 PO; +TRAZ-252 PO
--- NOTE | 2019-01-08 17:06 | REPMRS ---
Patient History The patient states she had a clinical breast exam in 12/2018. Patient is nulliparous. Family history of prostate cancer at age 56 in father, premenopausal breast cancer at age 50 or over in paternal aunt, breast cancer at age 50 or over in paternal aunt. Benign excisional biopsy of the right breast, 1995. 3D TOMOSYNTHESIS WAS PERFORMED. Digital Woman Screen Mammo: January 08, 2019 - Exam #: [id number] Bilateral CC and MLO view(s) were taken. Technologist: Breana Valdez Technologist Prior study comparison: June 09, 2017, digital woman screen mammo performed at [facility]. November 04, 2014, digital woman screen mammo performed at [facility]. FINDINGS: There are scattered fibroglandular densities. There has been no change in the appearance of the mammogram from the prior studies. There is a mild amount of residual fibroglandular tissue which is fairly symmetric. There is no interval development of dominant mass, architectural distortion, or clustered microcalcification suggestive of malignancy. Assessment: BI-RADS/ACR category 1 mammogram. Negative Mammogram. Recommendation Routine screening mammogram in 1 year (for women over age 40). This mammogram was interpreted with the aid of an FDA-approved computer-aided dectection system. THE LIFETIME RISK OF BREAST CANCER IS 21.1%, THEREFORE SUPPLEMENTAL SCREENING MRI OF THE BREASTS IS RECOMMENDED IN 6 MONTHS. Electronically Signed By: Yossi Quinn MD 01/08/19 [id number]
== END ==
LOC: M WHC 15:33
PROVIDERS: ATTEND Nurse Practitioner Family
DX: Z12.31 Encounter for screening mammogram for malignant neoplasm of breast (principal)

== ENCOUNTER → 2019-01-08 | Outpatient (REF) | payer BC ==
[2019-01-12 08:21] LABS: HPV HYBRID CAPTURE II Negative (Negative)
== END ==
LOC: M SFHCWAGY 16:17
PROVIDERS: ATTEND Nurse Practitioner Family
DX: Z12.4 Encounter for screening for malignant neoplasm of cervix (principal); B37.3 Candidiasis of vulva and vagina
CPT/HCPCS: 87624; G0123

== ENCOUNTER → 2019-02-21 | Outpatient (REF) | payer BC ==
[2019-02-25 09:37] LABS: BLOOD UREA NITROGEN 15 MG/DL (7-18); CARBON DIOXIDE LEVEL 29 MEQ/L (21-32); CHLORIDE LEVEL 107 MEQ/L (98-107); CREATININE FOR GFR 0.63 MG/DL (0.55-1.30); FREE T3 2.8 PG/ML (2.2-4.0); GLOMERULAR FILTRATION RATE > 60.0 (>51); GLUCOSE, FASTING 90 MG/DL (70-100); POTASSIUM SERUM 4.3 MEQ/L (3.5-5.1); SODIUM LEVEL 141 MEQ/L (136-145)
== END ==
LOC: M LABDRAW1 12:50
PROVIDERS: ATTEND Family Medicine
DX: R79.89 Other specified abnormal findings of blood chemistry (principal)

== ENCOUNTER → 2019-02-25 | Outpatient (REF) | payer BC ==
[2019-02-25 12:44] LABS: BLOOD UREA NITROGEN 13 MG/DL (7-18); CALCIUM LEVEL 9.3 MG/DL (8.5-10.1); CARBON DIOXIDE LEVEL 32 MEQ/L (21-32); CHLORIDE LEVEL 105 MEQ/L (98-107); CREATININE FOR GFR 0.67 MG/DL (0.55-1.30); FREE T3 3.4 PG/ML (2.2-4.0); FREE T4 0.79 NG/DL (0.76-1.46); GLOMERULAR FILTRATION RATE > 60.0 (>51); GLUCOSE, FASTING 97 MG/DL (70-100); POTASSIUM SERUM 4.3 MEQ/L (3.5-5.1); SODIUM LEVEL 141 MEQ/L (136-145)
== END ==
LOC: M SFHCLERA 08:09
PROVIDERS: ATTEND Family Medicine
DX: E23.6 Other disorders of pituitary gland (principal); R79.89 Other specified abnormal findings of blood chemistry

== ENCOUNTER → 2019-03-25 | Outpatient (CLI) | payer BC ==
[~2019-03-25] MED LIST changes: +PROHANCE 279.3MG/ML 5ML VIAL (A9576) As Ordered ONE
--- NOTE | 2019-03-26 08:33 | REP ---
MRI brain and pituitary gland without and with intravenous gadolinium: History: Cyst of the pituitary gland. The previously followed by neurosurgery. Technique: Axial and sagittal imaging planes are utilized for T1 and T2-weighted scans. Sequences include spin-echo, fast spin echo, FLAIR, and diffusion weighted sequences. Dynamically acquired sequential thin section coronal images through the pituitary are acquired post contrast. Postcontrast whole brain axial T1-weighted scans are acquired as well. Gadolinium enhancement dose is 10 ml of intravenous ProHance. Comparison: Comparison is made with reports of prior MRI studies dated October 05 1998 and February 18 2000 which described a 1.1 cm cyst in the region of the adenohypophysis. This is reported as stable on the 1999 study compared to a scan in 1996. MRI findings: Bony calvarium is intact. Craniocervical junction and upper cervical cord are normal in appearance. Normal appearing upper cervical lymph nodes are seen. The skull base soft tissues are otherwise unremarkable. There is mild mucosal thickening in the right maxillary and one or two of the right ethmoid air cells. No intraorbital abnormality is seen. The study confirms the presence of a low T1 high T2 signal intensity cystic lesion of the anterior pituitary gland. This has overall dimensions of 14 x 16 by 13 mm. I do not have the previous study images themselves to compare the measurements. This was previously reported as 11 mm. On dynamically acquired post contrast images, there is a thin rim of enhancement around the lesion which may reflect displaced pituitary tissue. The internal portion of the cystic lesion does not appear to enhance. Pituitary stalk remains in the midline. Suprasellar cistern is intact. Optic chiasm is unaffected. No evidence of cavernous sinus involvement on either side. There is no evidence of an extra sellar extension. There is no other intracranial mass lesion. No evidence of infarct or hemorrhage or extra-axial fluid collection is seen. Diffusion weighted scans show no evidence to suggest restricted diffusion. There are multiple tiny subcortical and periventricular white matter foci of T2 hyperintensity on FLAIR and turbo spin echo T2 images consistent with mild small vessel changes. Postcontrast imaging shows no abnormal intracranial contrast enhancement other than the rim enhancement in the cystic pituitary lesion described above. Impression: 1. 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 It measures 16 mm in greatest diameter on today's scan. This was reported as 11 mm in diameter on report prior MRI study dated 18 February 2000. It would appear to have gradually enlarged although we do not have the images themselves from the prior study for direct comparison. 2. Mild paranasal sinus mucosal changes. 3. Scattered nonspecific hyperintense T2 foci as above most consistent with early small vessel changes. Electronically Signed by Kendall Ward MD 03/26/2019 08:32 A
== END ==
LOC: M RAD 16:37
PROVIDERS: ATTEND Family Medicine
DX: E23.6 Other disorders of pituitary gland (principal)
CPT/HCPCS: 70553; A9576

== ENCOUNTER 2019-05-03 06:44 | Day surgery (SDC) | payer BC ==
[~2019-05-03] VITALS: Ht 167.6 cm; Wt 146.5 kg
[~2019-05-03 06:44] MED LIST changes: +CYAN500T8 PO; +FERR325T82 PO; +MULTCAP PO; -PROHANCE 279.3MG/ML 5ML VIAL (A9576) As Ordered ONE; +VITA200015 PO; +WELL100T2 PO
[2019-05-03] MEDS ORDERED: NS 1,000 ML IV ONE (07:00)
[2019-05-03] MEDS ORDERED: LIDOCAINE 2% INJ 100 MG/5 ML SDV (FOR ANES.) As Ordered ONE (07:02)
[2019-05-03] MEDS ORDERED: PROPOFOL 200 MG/20 ML VIAL As Ordered ONE (07:02)
--- NOTE | 2019-05-03 08:12 | ROOR ---
Patient Name: Medina Foster Procedure Date: 05/03/2019 7:06 AM Date of : 1970 Age: 48 Room: [facility] Gender: Female Note Status: Finalized Procedure: Colonoscopy Indications: Screening for colorectal malignant neoplasm Providers: Almas Lira MD Referring MD: Yossi AVILES MD Requesting Provider: Medicines: Monitored Anesthesia Care Complications: No immediate complications. Procedure: Pre-Anesthesia Assessment: - Prior to the procedure, a History and Physical was performed, and patient medications and allergies were reviewed. The patient is competent. The risks and benefits of the procedure and the sedation options and risks were discussed with the patient. All questions were answered and informed consent was obtained. Patient identification and proposed procedure were verified by the physician, the nurse and the anesthesiologist in the procedure room. Mental Status Examination: normal. Airway Examination: normal oropharyngeal airway and neck mobility. Respiratory Examination: clear to auscultation. CV Examination: normal. Prophylactic Antibiotics: The patient does not require prophylactic antibiotics. Prior Anticoagulants: The patient has taken no previous anticoagulant or antiplatelet agents. ASA Grade Assessment: II - A patient with mild systemic disease. After reviewing the risks and benefits, the patient was deemed in satisfactory condition to undergo the procedure. The anesthesia plan was to use monitored anesthesia care (MAC). Immediately prior to administration of medications, the patient was re-assessed for adequacy to receive sedatives. The heart rate, respiratory rate, oxygen saturations, blood pressure, adequacy of pulmonary ventilation, and response to care were monitored throughout the procedure. The physical status of the patient was re-assessed after the procedure. The Colonoscope was introduced through the anus and advanced to the terminal ileum, with identification of the appendiceal orifice and IC valve. The colonoscopy was performed without difficulty. The patient tolerated the procedure well. The quality of the bowel preparation was good. The terminal ileum, ileocecal valve, appendiceal orifice, and rectum were photographed. Scope insertion time was 3 minutes. Scope withdrawal time was 10 minutes. The total duration of the procedure was 14 minutes. Findings: The perianal and digital rectal examinations were normal. The terminal ileum appeared normal. A few small and large-mouthed diverticula were found in the sigmoid colon. There was no evidence of diverticular bleeding. A 5 mm polyp was found in the rectum. The polyp was sessile. The polyp was removed with a cold snare. Resection and retrieval were complete. Verification of patient identification for the specimen was done by the physician and nurse using the patient's name, date and medical record number. Estimated blood loss was minimal. Non-bleeding external and internal hemorrhoids were found during retroflexion. The hemorrhoids were small. Impression: - The examined portion of the ileum was normal. - Mild diverticulosis in the sigmoid colon. There was no evidence of diverticular bleeding. - One 5 mm polyp in the rectum, removed with a cold snare. Resected and retrieved. - Non-bleeding external and internal hemorrhoids. Recommendation: - Patient has a contact number available for emergencies. The signs and symptoms of potential delayed complications were discussed with the patient. Return to normal activities tomorrow. Written discharge instructions were provided to the patient. - High fiber diet. - Continue present medications. - Await pathology results. - Repeat colonoscopy in 5-10 years for surveillance based on pathology results. - Telephone GI clinic for pathology results in 2 weeks. - Return to primary care physician. Almas Lira MD Almas Lira MD 05/03/2019 8:11:55 AM Electronically signed by Alams Lira MD Number of Addenda: 0 Note Initiated On: 05/03/2019 7:06 AM Estimated Blood Loss: Estimated blood loss was minimal.
[2019-05-03 08:25] VITALS: BP 173/91
== END 2019-05-03 08:39 | disposition home or self-care (01) ==
LOC: M OPP 06:44
PROVIDERS: ATTEND Internal Medicine Gastroenterology
DX: Z12.11 Encounter for screening for malignant neoplasm of colon (principal); K64.8 Other hemorrhoids; K62.1 Rectal polyp; K57.30 Diverticulosis of large intestine without perforation or abscess without bleeding; Z79.899 Other long term (current) drug therapy; Z80.1 Family history of malignant neoplasm of trachea, bronchus and lung; Z80.3 Family history of malignant neoplasm of breast; Z80.42 Family history of malignant neoplasm of prostate; Z98.84 Bariatric surgery status

== ENCOUNTER → 2020-05-21 | Outpatient (CLI) | payer SELFPAY ==
[~2020-05-21] MED LIST changes: +CYAN500T14 PO; -CYAN500T8 PO
== END ==
LOC: M LABSMTC 11:56
PROVIDERS: ATTEND Pediatrics
DX: Z20.822 Contact with and (suspected) exposure to COVID-19 (principal)

== ENCOUNTER → 2020-06-01 | Outpatient (CLI) | payer SELFPAY | LOC: M LABSMTC 10:58 | PROVIDERS: ATTEND Pediatrics | DX: Z20.822 Contact with and (suspected) exposure to COVID-19 (principal) ==

== ENCOUNTER → 2021-01-20 | Outpatient (REF) | payer BC | LOC: M SFHCWAGY 19:13 | PROVIDERS: ATTEND Nurse Practitioner Women's Health | DX: Z12.4 Encounter for screening for malignant neoplasm of cervix (principal); R87.610 Atypical squamous cells of undetermined significance on cytologic smear of cervix (ASC-US) | CPT/HCPCS: 87624; G0123 ==

== ENCOUNTER → 2021-01-20 | Outpatient (CLI) | payer BC ==
--- NOTE | 2021-01-20 16:35 | REPMRS ---
Patient History The patient states she had a clinical breast exam in December 2020. Patient is postmenopausal and is nulliparous. Family history of prostate cancer at age 56 in father, premenopausal breast cancer at age 50 or over in paternal aunt, breast cancer at age 50 or over in paternal aunt. Benign excisional biopsy of the right breast, 1995. Covid vaccine 06/30/20 left arm. 07/21/20 left arm. Patient states no breast complaints today. Patient has signed MRS History Sheet. Digital Woman Screen Mammo: January 20, 2021 - Exam #: [id number] Bilateral CC and MLO view(s) were taken. Technologist: RT Bon Prior study comparison: January 08, 2019, bilateral digital woman screen mammo performed at [facility]. June 09, 2017, digital woman screen mammo performed at [facility]. FINDINGS: The breast tissue is almost entirely fat. Screening. Digital screening (2D) mammography was performed bilaterally in the CC and MLO projections. Additionally, breast tomosynthesis (3D mammography) was performed bilaterally in the CC and MLO projections. Todays exam was compared to the prior exam/exams. By history, the patient has no complaints of a palpable breast abnormality or other significant breast complaints. The breasts are unchanged in size and shape. There are no manuela-soft tissue densities or spiculated masses. There is no internal architectural distortion. There are no suspicious manuela-calcific clusters. Skin thickening or nipple retraction is not present. The Volpara volumetric breast density category is A, the breasts are almost entirely fatty. IMPRESSION: BI-RADS Category 2- Benign Findings. There is no evidence of malignant alteration of the breasts. Followup examination recommended in one year. This mammogram was read with the assistance of 4Cable TV,an FDA approved computer aided detection system for mammography. The lifetime Tyrer-Cuzick score is 19.8% Negative x-ray reports should not delay surgical consultation if a dominant or clinically suspicious mass is present. Not all breast cancers can be identified by mammography. Therefore, we recommend that you continue to perform regular breast self-examination and physical examination and then promptly contact your physician of any concerns or changes. Adenosis and dense breasts may obscure an underlying neoplasm. No significant changes when compared with prior studies. Assessment: BI-RADS/ACR category 2 mammogram. Benign Findings. Recommendation Routine screening mammogram of both breasts in 1 year. Electronically Signed By: Everardo Oviedo MD 01/20/21 1324
== END ==
LOC: M WHC 15:16
PROVIDERS: ATTEND Nurse Practitioner Women's Health
DX: Z12.31 Encounter for screening mammogram for malignant neoplasm of breast (principal); Z78.0 Asymptomatic menopausal state; Z80.3 Family history of malignant neoplasm of breast

== ENCOUNTER → 2021-10-06 | Outpatient (REF) | payer BC ==
[2021-10-06 13:49] LABS: FOLATE 3.8 NG/ML; VITAMIN B12 LEVEL 290 PG/ML
== END ==
LOC: M LAB REF 12:19
PROVIDERS: ATTEND Family Medicine
DX: R41.3 Other amnesia (principal)

== ENCOUNTER → 2022-02-02 | Outpatient (REF) | payer BC | LOC: M LAB REF 16:23 | PROVIDERS: ATTEND Registered Nurse | DX: N39.0 Urinary tract infection, site not specified (principal) ==

== ENCOUNTER → 2022-05-20 | Outpatient (REF) | payer BC | LOC: M LAB REF 16:33 | PROVIDERS: ATTEND Family Medicine | DX: N39.0 Urinary tract infection, site not specified (principal) ==

== ENCOUNTER → 2022-10-04 | Outpatient (CLI) | payer BC | LOC: M RAD 07:01 | PROVIDERS: ATTEND Nurse Practitioner Family | DX: R94.5 Abnormal results of liver function studies (principal); F10.10 Alcohol abuse, uncomplicated; Z12.11 Encounter for screening for malignant neoplasm of colon; Z90.49 Acquired absence of other specified parts of digestive tract; R14.0 Abdominal distension (gaseous) ==

== ENCOUNTER → 2023-01-11 | Outpatient (REF) | payer BC | LOC: M SFHCWAGY 13:07 | PROVIDERS: ATTEND Nurse Practitioner Family | DX: Z12.4 Encounter for screening for malignant neoplasm of cervix (principal) | CPT/HCPCS: 87624; G0123 ==

== ENCOUNTER → 2023-01-11 | Outpatient (CLI) | payer BC | LOC: M WHC 08:42 | PROVIDERS: ATTEND Nurse Practitioner Family | DX: Z12.31 Encounter for screening mammogram for malignant neoplasm of breast (principal) ==